=== PATIENT | female | born 1975 | race Caucasian/White ===

== ENCOUNTER 2021-06-16 12:34 | Outpatient (CLI) | payer BC ==
[2021-06-17 15:23] LABS: SARS-CoV-2 PCR by NAA Not Detected (NotDetected)
== END 2021-06-16 12:35 | disposition home or self-care (01) ==
LOC: LABBT 12:34
PROVIDERS: ATTEND Internal Medicine Gastroenterology
DX: Z01.812 Encounter for preprocedural laboratory examination (principal); M62.89 Other specified disorders of muscle; K21.9 Gastro-esophageal reflux disease without esophagitis; R10.13 Epigastric pain; Z20.822 Contact with and (suspected) exposure to COVID-19
CPT/HCPCS: U0003; U0005

== ENCOUNTER 2021-11-20 12:49 | Inpatient (IN) | payer BC, SELFPAY ==
[~2021-11-20 12:49] MED LIST: Iopamidol 370 76% 100 ML VIAL ONE
[2021-11-20] MEDS ORDERED: Morphine 4 MG/ML VIAL ONE (13:16)
[2021-11-20] MEDS ORDERED: Promethazine HCl 25 MG/ML VIAL ONE (13:16)
[2021-11-20 13:53] LABS: #Basophils 0.1 thou/uL (0.0-0.2); #Eosinphils 0.2 thou/uL (0.0-0.7); #Monocytes 0.5 thou/uL (0.11-0.59); #Neutrophils 4.8 thou/uL (1.40-6.50); %Basophils 0.7 % (0.0-1.0); %Eosinophils 2.2 % (0.0-10.0); %Lymphocytes 26.1 % (21.0-51.0); %Monocytes 7.1 % (0.0-10.0); %Neutrophils 63.9 % (42.0-75.0); Hemoglobin 12.7 g/dL (12.0-16.0); Mean Corpuscular HGB CONC 32.7 g/dL (32.0-36.0); Mean Corpuscular Hemoglobin 29.2 pg (27.0-31.0); Mean Corpuscular Volume 89.3 fL (78.0-98.0); Mean Platelet Volume 7.3 fL (7.4-10.4); Platelet Count 307 thou/uL (130-400); RBC Distribution Width 12.6 % (11.5-14.5); Red Blood Cell (RBC) Count 4.36 mill/uL (4.20-5.40); White Blood Cell (WBC) Count 7.5 thou/uL (4.8-10.8)
[2021-11-20 14:02] LABS: BHCG - Serum Negative (NEGATIVE); Pregs Control Background? CLEAR/WHITE (CLR/WHITE); Pregs Control Bar Appear? YES (CONTROL BAR)
[2021-11-20 14:16] LABS: ALT (SGPT) 17 U/L (8-55); AST (SGOT) 17 U/L (5-34); Albumin 4.1 g/dL (3.5-5.0); Alkaline Phosphatase 68 U/L (40-110); Anion Gap 12 mmol/L (10-20); BUN (Urea Nitrogen) 15 mg/dL (7.0-18.7); Bilirubin, Total 0.4 mg/dL (0.2-1.2); Calc. Creatinine Clearance 0 mL/min (70-130); Carbon Dioxide 18 mmol/L (22-29); Chloride 109 mmol/L (98-107); Globulin 3.4 g/dL (2.4-3.5); Glucose 97 mg/dL (70-105); Potassium 4.1 mmol/L (3.5-5.1); Protein, Total 7.5 g/dL (6.0-8.3); Sodium 135 mmol/L (136-145)
[2021-11-20] MEDS ORDERED: Benzocaine 20% Spray 60 ML CAN ONE (15:23)
[2021-11-20] MEDS ORDERED: Lidocaine Viscous Sol 2% 15 ml UD Cup ONE (15:23)
[2021-11-20] MEDS ORDERED: Fentanyl 100 MCG/2 ML VIAL ONE (15:27)
[2021-11-20] MEDS ORDERED: Senokot S 8.6-50 MG TAB PO PRN (15:57)
[2021-11-20] MEDS ORDERED: Guaifenesin DM 100-10/5 ML UDCUP PO PRN (15:57)
[2021-11-20] MEDS ORDERED: Ketorolac Tromethamine 30 MG/ML VIAL IVP PRN (16:01)
[2021-11-20 17:11] VITALS: BMI 35.0
[2021-11-20] MEDS: Sodium Chloride 0.9% 1,000 ML IV SCH ×2 (17:29→20:42)
[2021-11-20] MEDS: Morphine 4 MG/ML VIAL SLOW IVP PRN ×2 (17:31→21:32)
[2021-11-20 18:58] LABS: SARS-CoV-2 NAA Rapid Test Not Detected (NotDetected)
[2021-11-20] MEDS: Famotidine/PF 20 mg/2ml Vial SLOW IVP SCH (20:42)
[2021-11-20] MEDS: Promethazine HCl 12.5 MG in Sodium Chloride 0.9% 50 ML IVPB PRN (21:34)
[2021-11-21] MEDS: Morphine 4 MG/ML VIAL SLOW IVP PRN ×6 (01:33→23:13)
[2021-11-21] MEDS: Sodium Chloride 0.9% 1,000 ML IV SCH ×3 (05:50→17:49)
[2021-11-21] MEDS: Metoclopramide HCl 10 MG/2 ML VIAL IVP PRN ×2 (05:51→17:56)
[2021-11-21 06:37] LABS: #Eosinphils 0.2 thou/uL (0.0-0.7); #Lymphocytes 2.2 thou/uL (1.20-3.40); #Monocytes 0.5 thou/uL (0.11-0.59); #Neutrophils 3.8 thou/uL (1.40-6.50); %Basophils 0.5 % (0.0-1.0); %Eosinophils 2.9 % (0.0-10.0); %Lymphocytes 32.9 % (21.0-51.0); %Monocytes 7.3 % (0.0-10.0); %Neutrophils 56.4 % (42.0-75.0); Hemoglobin 11.4 g/dL (12.0-16.0); Mean Corpuscular HGB CONC 32.1 g/dL (32.0-36.0); Mean Corpuscular Hemoglobin 29.2 pg (27.0-31.0); Mean Corpuscular Volume 91.2 fL (78.0-98.0); Mean Platelet Volume 7.4 fL (7.4-10.4); Platelet Count 272 thou/uL (130-400); RBC Distribution Width 12.6 % (11.5-14.5); White Blood Cell (WBC) Count 6.8 thou/uL (4.8-10.8)
[2021-11-21 06:59] LABS: ALT (SGPT) 15 U/L (8-55); AST (SGOT) 17 U/L (5-34); Albumin 3.4 g/dL (3.5-5.0); Alkaline Phosphatase 59 U/L (40-110); Anion Gap 12 mmol/L (10-20); BUN (Urea Nitrogen) 11 mg/dL (7.0-18.7); Bilirubin, Total 0.3 mg/dL (0.2-1.2); Calc. Creatinine Clearance 135 mL/min (70-130); Calcium 7.9 mg/dL (7.8-10.44); Carbon Dioxide 17 mmol/L (22-29); Chloride 110 mmol/L (98-107); Globulin 2.9 g/dL (2.4-3.5); Glucose 80 mg/dL (70-105); Potassium 3.6 mmol/L (3.5-5.1); Protein, Total 6.3 g/dL (6.0-8.3); Sodium 135 mmol/L (136-145)
[2021-11-21] MEDS ORDERED: MD-Gastroview 120 ML BOT ONE (09:41)
[2021-11-21] MEDS: Enoxaparin Sodium 40 MG/0.4 ML SYRINGE SC SCH (10:09)
[2021-11-21] MEDS: Famotidine/PF 20 mg/2ml Vial SLOW IVP SCH ×2 (10:11→20:23)
[2021-11-21] MEDS: Promethazine HCl 12.5 MG in Sodium Chloride 0.9% 50 ML IVPB PRN (11:11)
[2021-11-21] MEDS ORDERED: Bisacodyl 10 MG SUPP PR PRN (13:28)
[2021-11-21] MEDS ORDERED: Bisacodyl 10 MG SUPP PR SCH (13:30)
[2021-11-22] MEDS: Sodium Chloride 0.9% 1,000 ML IV SCH ×3 (02:48→20:24)
[2021-11-22] MEDS: Morphine 4 MG/ML VIAL SLOW IVP PRN ×6 (04:20→23:27)
[2021-11-22 05:07] LABS: Mean Corpuscular HGB CONC 34.6 g/dL (32.0-36.0); Mean Corpuscular Hemoglobin 30.5 pg (27.0-31.0); Mean Corpuscular Volume 88.2 fL (78.0-98.0); Mean Platelet Volume 7.5 fL (7.4-10.4); Platelet Count 280 thou/uL (130-400); RBC Distribution Width 12.6 % (11.5-14.5); Red Blood Cell (RBC) Count 3.94 mill/uL (4.20-5.40); White Blood Cell (WBC) Count 7.9 thou/uL (4.8-10.8)
[2021-11-22 05:31] LABS: ALT (SGPT) 14 U/L (8-55); AST (SGOT) 21 U/L (5-34); Albumin 3.5 g/dL (3.5-5.0); Alkaline Phosphatase 59 U/L (40-110); Anion Gap 14 mmol/L (10-20); BUN (Urea Nitrogen) 8 mg/dL (7.0-18.7); Bilirubin, Total 0.3 mg/dL (0.2-1.2); Calc. Creatinine Clearance 132 mL/min (70-130); Calcium 8.1 mg/dL (7.8-10.44); Carbon Dioxide 16 mmol/L (22-29); Chloride 108 mmol/L (98-107); Globulin 3.3 g/dL (2.4-3.5); Glucose 62 mg/dL (70-105); Protein, Total 6.8 g/dL (6.0-8.3); Sodium 134 mmol/L (136-145)
[2021-11-22] MEDS: Enoxaparin Sodium 40 MG/0.4 ML SYRINGE SC SCH (07:43)
[2021-11-22] MEDS: Famotidine/PF 20 mg/2ml Vial SLOW IVP SCH ×2 (07:47→19:42)
[2021-11-22] MEDS ORDERED: Polyethylene Glycol 3350 17 GM Packet PO SCH (10:15)
[2021-11-22] MEDS: Polyethylene Glycol 3350 17 GM Packet PO SCH ×2 (15:20→18:06)
[2021-11-22] MEDS: Promethazine HCl 12.5 MG in Sodium Chloride 0.9% 50 ML IVPB PRN (20:24)
[2021-11-23] MEDS: Morphine 4 MG/ML VIAL SLOW IVP PRN ×2 (03:19→07:33)
[2021-11-23] MEDS: Sodium Chloride 0.9% 1,000 ML IV SCH (06:24)
[2021-11-23] MEDS: Famotidine/PF 20 mg/2ml Vial SLOW IVP SCH (07:34)
[2021-11-23] MEDS: Enoxaparin Sodium 40 MG/0.4 ML SYRINGE SC SCH (07:35)
[2021-11-23] MEDS: Polyethylene Glycol 3350 17 GM Packet PO SCH (07:35)
[2021-11-23 07:44] VITALS: BP 109/72; TEMP 98.1
== END 2021-11-23 11:20 | disposition home or self-care (01) | DRG 390 ==
LOC: ERS 12:49 → SURG A 15:32 → OBSVTOIN 11-21 16:45
PROVIDERS: ADMIT Hospitalist; ATTEND Internal Medicine
PROC: 0D9770Z Drainage of Stomach, Pylorus with Drainage Device, Via Natural or Artificial Opening (ICD-10-PCS; principal; 2021-11-21)
DX: K56.7 Ileus, unspecified (principal); Z20.822 Contact with and (suspected) exposure to COVID-19; F32.A Depression, unspecified; K21.9 Gastro-esophageal reflux disease without esophagitis; K22.70 Barrett's esophagus without dysplasia; D25.9 Leiomyoma of uterus, unspecified; Z90.49 Acquired absence of other specified parts of digestive tract; Z88.8 Allergy status to other drugs, medicaments and biological substances
CPT/HCPCS: 36415; 36416; 71045; 74177; 74250; 76856; 80053; 84703; 85025; 85027; 96361; 96374; 96375; J1650; J1885; J2270; J2550; J2765; J3010; J7050; Q9963; Q9967; S0028; U0002

== ENCOUNTER 2022-01-01 16:40 | Inpatient (IN) | payer BC, SELFPAY ==
[~2022-01-01 16:40] MED LIST changes: -Iopamidol 370 76% 100 ML VIAL ONE; +Iopamidol-370 76% 500 ML 1 ML ONE
[2022-01-01 17:43] LABS: ALT (SGPT) 48 U/L (8-55); AST (SGOT) 32 U/L (5-34); Albumin 4.4 g/dL (3.5-5.0); Alkaline Phosphatase 74 U/L (40-110); Anion Gap 17 mmol/L (10-20); BUN (Urea Nitrogen) 11 mg/dL (7.0-18.7); Bilirubin, Total 0.2 mg/dL (0.2-1.2); Calc. Creatinine Clearance 0 mL/min (70-130); Carbon Dioxide 15 mmol/L (22-29); Chloride 110 mmol/L (98-107); Globulin 3.6 g/dL (2.4-3.5); Glucose 100 mg/dL (70-105); Potassium 4.4 mmol/L (3.5-5.1); Sodium 138 mmol/L (136-145)
[2022-01-01 19:03] LABS: #Basophils 0.1 thou/uL (0.0-0.2); #Eosinphils 0.3 thou/uL (0.0-0.7); #Lymphocytes 2.9 thou/uL (1.20-3.40); #Monocytes 0.6 thou/uL (0.11-0.59); #Neutrophils 4.9 thou/uL (1.40-6.50); %Basophils 0.7 % (0.0-1.0); %Eosinophils 3.1 % (0.0-10.0); %Lymphocytes 33.2 % (21.0-51.0); %Monocytes 7.1 % (0.0-10.0); %Neutrophils 55.9 % (42.0-75.0); Hemoglobin 13.3 g/dL (12.0-16.0); Mean Corpuscular HGB CONC 32.6 g/dL (32.0-36.0); Mean Corpuscular Hemoglobin 29.3 pg (27.0-31.0); Mean Corpuscular Volume 89.7 fL (78.0-98.0); Mean Platelet Volume 7.1 fL (7.4-10.4); Platelet Count 370 thou/uL (130-400); RBC Distribution Width 13.4 % (11.5-14.5); Red Blood Cell (RBC) Count 4.53 mill/uL (4.20-5.40); White Blood Cell (WBC) Count 8.8 thou/uL (4.8-10.8)
[2022-01-01 19:05] LABS: Bacteria/HPF 4+ HPF (None Seen); Bilirubin Negative (Negative); Blood, Urine Trace (Negative); Clarity Turbid (Clear); Glucose, Urine (Dipstick) Normal (Negative); Ketone, Urine Negative (Negative); Leukocyte 500 Leu/uL (Negative); Nitrite 1+ (Negative); Protein, Urine (Dipstick) 10 mg/dL (Neg-Trace); Specific Gravity, Urine 1.021 (1.002-1.036); Squamous Epithelial 0-3 HPF (0-3); Urobilinogen Normal mg/dL (Less than 2); WBC/HPF Greater than 50 HPF (0-3); pH, Urine 5.5 (5.0-9.0)
[2022-01-01] MEDS ORDERED: Morphine 4 MG/ML VIAL ONE ×2 (19:28→21:19)
[2022-01-01 19:32] LABS: BHCG - Serum Negative (NEGATIVE); Pregs Control Background? CLEAR/WHITE (CLR/WHITE); Pregs Control Bar Appear? YES (CONTROL BAR)
[2022-01-01] MEDS ORDERED: Promethazine HCl 25 MG/ML VIAL ONE (21:19)
[2022-01-01] MEDS ORDERED: cefTRIAXone\\ROCEPHIN 2 GM VIAL ONE (22:32)
[2022-01-02 00:13] VITALS: BMI 23.1
[2022-01-02] MEDS: Sodium Chloride 0.9% 1,000 ML IV SCH ×2 (00:41→06:21)
[2022-01-02] MEDS: Morphine 4 MG/ML VIAL SLOW IVP PRN ×6 (01:34→23:25)
[2022-01-02] MEDS ORDERED: Ondansetron PF 4 MG/2 ML Vial IVP PRN ×2 (05:14→08:13)
[2022-01-02] MEDS ORDERED: Ondansetron ODT 4 MG TAB PO PRN (05:16)
[2022-01-02] MEDS ORDERED: Promethazine HCl 25 MG/ML VIAL IM SCH (06:00)
[2022-01-02] MEDS ORDERED: Acetaminophen 325 MG TAB PO PRN (08:13)
[2022-01-02] MEDS: Sodium Chloride 0.45% 1,000 ML IV SCH ×2 (08:47→18:53)
[2022-01-02] MEDS: Escitalopram Oxalate 20 mg Tablet PO SCH (08:48)
[2022-01-02] MEDS: Enoxaparin Sodium 40 MG/0.4 ML SYRINGE SC SCH (08:48)
[2022-01-02 09:50] LABS: Anion Gap 10 mmol/L (10-20); BUN (Urea Nitrogen) 8 mg/dL (7.0-18.7); Calc. Creatinine Clearance 99 mL/min (70-130); Calcium 7.6 mg/dL (7.8-10.44); Carbon Dioxide 20 mmol/L (22-29); Chloride 109 mmol/L (98-107); Glucose 82 mg/dL (70-105); Potassium 3.8 mmol/L (3.5-5.1); Sodium 135 mmol/L (136-145)
[2022-01-02] MEDS ORDERED: Morphine 2 MG/ML VIAL SLOW IVP PRN (10:13)
[2022-01-02 12:25] LABS: SARS-CoV-2 PCR by NAA Not Detected (NotDetected)
[2022-01-02] MEDS ORDERED: MD-Gastroview 120 ML BOT ONE (12:52)
[2022-01-03] MEDS: Morphine 4 MG/ML VIAL SLOW IVP PRN ×2 (03:40→08:11)
[2022-01-03] MEDS: Sodium Chloride 0.45% 1,000 ML IV SCH (04:33)
[2022-01-03 05:55] LABS: #Eosinphils 0.3 thou/uL (0.0-0.7); #Monocytes 0.6 thou/uL (0.11-0.59); #Neutrophils 3.2 thou/uL (1.40-6.50); %Basophils 0.5 % (0.0-1.0); %Eosinophils 4.5 % (0.0-10.0); %Lymphocytes 33.3 % (21.0-51.0); %Neutrophils 52.7 % (42.0-75.0); Hemoglobin 11.9 g/dL (12.0-16.0); Mean Corpuscular HGB CONC 32.3 g/dL (32.0-36.0); Mean Corpuscular Hemoglobin 29.5 pg (27.0-31.0); Mean Corpuscular Volume 91.3 fL (78.0-98.0); Mean Platelet Volume 7.1 fL (7.4-10.4); Platelet Count 334 thou/uL (130-400); RBC Distribution Width 13.2 % (11.5-14.5); Red Blood Cell (RBC) Count 4.05 mill/uL (4.20-5.40); White Blood Cell (WBC) Count 6.1 thou/uL (4.8-10.8)
[2022-01-03 06:21] LABS: Anion Gap 14 mmol/L (10-20); BUN (Urea Nitrogen) 5 mg/dL (7.0-18.7); Calc. Creatinine Clearance 100 mL/min (70-130); Calcium 8.8 mg/dL (7.8-10.44); Carbon Dioxide 18 mmol/L (22-29); Chloride 108 mmol/L (98-107); Glucose 84 mg/dL (70-105); Potassium 3.7 mmol/L (3.5-5.1); Sodium 136 mmol/L (136-145)
[2022-01-03 08:04] VITALS: TEMP 98
[2022-01-03] MEDS: Enoxaparin Sodium 40 MG/0.4 ML SYRINGE SC SCH (08:09)
[2022-01-03] MEDS: Escitalopram Oxalate 20 mg Tablet PO SCH (08:09)
[2022-01-03 12:23] VITALS: BP 95/64
== END 2022-01-03 15:42 | disposition home or self-care (01) | DRG 389 ==
LOC: ERS 16:40 → T4-A 22:36 → OBSVTOIN 01-02 16:00
PROVIDERS: ADMIT Student in an Organized Health Care Education/Training Program; ATTEND Internal Medicine
DX: K56.609 Unspecified intestinal obstruction, unspecified as to partial versus complete obstruction (principal); N17.9 Acute kidney failure, unspecified; Z88.8 Allergy status to other drugs, medicaments and biological substances; Z79.899 Other long term (current) drug therapy; Z90.49 Acquired absence of other specified parts of digestive tract; Z98.890 Other specified postprocedural states; Z20.822 Contact with and (suspected) exposure to COVID-19
CPT/HCPCS: 36415; 74177; 74250; 80048; 80053; 81003; 81015; 83690; 84703; 85025; 87077; 87086; 87186; 96365; 96372; 96375; 96376; G0378; J0696; J1650; J2270; J2405; J2550; J7050; Q9963; Q9967; U0003; U0005

== ENCOUNTER 2022-03-03 15:00 | Emergency (ER) | payer BC ==
[~2022-03-03 15:00] MED LIST changes: +GASTROGRAFIN 30 ML BOT ONE
[2022-03-03 16:19] LABS: #Basophils 0.1 thou/uL (0.0-0.2); #Eosinphils 0.2 thou/uL (0.0-0.7); #Monocytes 0.6 thou/uL (0.11-0.59); #Neutrophils 6.2 thou/uL (1.40-6.50); %Basophils 0.5 % (0.0-1.0); %Eosinophils 2.3 % (0.0-10.0); %Lymphocytes 30.1 % (21.0-51.0); %Monocytes 6.3 % (0.0-10.0); %Neutrophils 60.9 % (42.0-75.0); Hemoglobin 13.2 g/dL (12.0-16.0); Mean Corpuscular HGB CONC 33.3 g/dL (32.0-36.0); Mean Corpuscular Hemoglobin 29.2 pg (27.0-31.0); Mean Corpuscular Volume 87.7 fL (78.0-98.0); Mean Platelet Volume 6.9 fL (7.4-10.4); Platelet Count 375 thou/uL (130-400); RBC Distribution Width 13.1 % (11.5-14.5); Red Blood Cell (RBC) Count 4.53 mill/uL (4.20-5.40); White Blood Cell (WBC) Count 10.1 thou/uL (4.8-10.8)
[2022-03-03] MEDS ORDERED: HYDROmorphone 0.5 MG/0.5 ML SYRINGE ONE ×2 (16:20→18:30)
[2022-03-03 16:47] LABS: ALT (SGPT) 26 U/L (8-55); AST (SGOT) 21 U/L (5-34); Albumin 4.4 g/dL (3.5-5.0); Alkaline Phosphatase 74 U/L (40-110); Anion Gap 14 mmol/L (10-20); BUN (Urea Nitrogen) 14 mg/dL (7.0-18.7); Bilirubin, Total 0.2 mg/dL (0.2-1.2); Calc. Creatinine Clearance 0 mL/min (70-130); Calcium 9.3 mg/dL (7.8-10.44); Carbon Dioxide 22 mmol/L (22-29); Chloride 106 mmol/L (98-107); Globulin 3.8 g/dL (2.4-3.5); Glucose 90 mg/dL (70-105); Lipase 34 U/L (8-78); Potassium 3.9 mmol/L (3.5-5.1); Protein, Total 8.2 g/dL (6.0-8.3); Sodium 138 mmol/L (136-145)
[2022-03-03] MEDS ORDERED: Promethazine HCl 12.5 MG in Sodium Chloride 0.9% 50 ML IVPB SCH (17:00)
[2022-03-03 17:45] LABS: BHCG - Serum Negative (NEGATIVE); Pregs Control Background? CLEAR/WHITE (CLR/WHITE); Pregs Control Bar Appear? YES (CONTROL BAR)
== END 2022-03-03 19:55 | disposition home or self-care (01) ==
LOC: ERS 15:00
DX: K59.00 Constipation, unspecified (principal); K94.09 Other complications of colostomy
CPT/HCPCS: 71045; 74177; 80053; 83605; 83690; 84484; 84703; 85025; 87040; 93005; 96365; 96375; 96376; J1170; J2550; Q9963; Q9967

== ENCOUNTER 2022-04-15 15:46 | Inpatient (IN) | payer BC, SELFPAY ==
[~2022-04-15 15:46] MED LIST changes: -GASTROGRAFIN 30 ML BOT ONE
[2022-04-15] MEDS ORDERED: Morphine 4 MG/ML VIAL SLOW IVP SCH (16:30)
[2022-04-15] MEDS ORDERED: Promethazine HCl 12.5 MG in Sodium Chloride 0.9% 1,000 ML IVPB SCH (16:30)
[2022-04-15] MEDS ORDERED: Morphine 4 MG/ML VIAL ONE ×2 (16:38→17:50)
[2022-04-15 16:40] LABS: #Eosinphils 0.1 thou/uL (0.0-0.7); #Lymphocytes 2.4 thou/uL (1.20-3.40); #Monocytes 0.3 thou/uL (0.11-0.59); #Neutrophils 4.6 thou/uL (1.40-6.50); %Basophils 0.5 % (0.0-1.0); %Eosinophils 1.9 % (0.0-10.0); %Lymphocytes 32.2 % (21.0-51.0); %Monocytes 4.4 % (0.0-10.0); Hemoglobin 13.5 g/dL (12.0-16.0); Mean Corpuscular HGB CONC 33.1 g/dL (32.0-36.0); Mean Corpuscular Hemoglobin 29.3 pg (27.0-31.0); Mean Corpuscular Volume 88.5 fL (78.0-98.0); Mean Platelet Volume 7.8 fL (7.4-10.4); Platelet Count 257 thou/uL (130-400); RBC Distribution Width 12.9 % (11.5-14.5); White Blood Cell (WBC) Count 7.5 thou/uL (4.8-10.8)
[2022-04-15 17:12] LABS: ALT (SGPT) 47 U/L (8-55); AST (SGOT) 30 U/L (5-34); Albumin 4.5 g/dL (3.5-5.0); Alkaline Phosphatase 74 U/L (40-110); BUN (Urea Nitrogen) 12 mg/dL (7.0-18.7); Bilirubin, Total 0.3 mg/dL (0.2-1.2); Calc. Creatinine Clearance 0 mL/min (70-130); Calcium 9.7 mg/dL (7.8-10.44); Carbon Dioxide 21 mmol/L (22-29); Estimated GFR 68; Globulin 3.7 g/dL (2.4-3.5); Glucose 160 mg/dL (70-105); Lipase 37 U/L (8-78); Protein, Total 8.2 g/dL (6.0-8.3)
[2022-04-15 17:15] LABS: Chloride 103 mmol/L (98-107); Potassium 3.7 mmol/L (3.5-5.1); Sodium 138 mmol/L (136-145)
[2022-04-15 17:34] LABS: Anion Gap 18 mmol/L (10-20)
[2022-04-15] MEDS ORDERED: Piperacillin/Tazobactam 3.375 GM VIAL ONE (18:29)
[2022-04-15 18:51] LABS: Bacteria/HPF 3+ HPF (None Seen); Bilirubin Negative (Negative); Blood, Urine Negative (Negative); Clarity Clear (Clear); Glucose, Urine (Dipstick) Normal (Negative); Ketone, Urine Negative (Negative); Leukocyte 25 Leu/uL (Negative); Nitrite Negative (Negative); Protein, Urine (Dipstick) Negative (Neg-Trace); RBC/HPF 0-3 HPF (0-3); Specific Gravity, Urine 1.005 (1.002-1.036); Squamous Epithelial 0-3 HPF (0-3); Urobilinogen Normal mg/dL (Less than 2)
[2022-04-15] MEDS ORDERED: Ketorolac Tromethamine 30 MG/ML VIAL ONE (19:41)
[2022-04-15] MEDS ORDERED: HYDROmorphone 0.5 MG/0.5 ML SYRINGE ONE (19:41)
[2022-04-15 19:54] LABS: Lactic Acid 0.7 mmol/L (0.5-2.2)
[2022-04-15] MEDS ORDERED: Fentanyl 100 MCG/2 ML VIAL ONE (22:53)
[2022-04-15] MEDS ORDERED: Fentanyl 100 MCG/2 ML VIAL SLOW IVP SCH (23:00)
[2022-04-15] MEDS ORDERED: Morphine 4 MG/ML VIAL SLOW IVP PRN (23:25)
[2022-04-15] MEDS ORDERED: Ondansetron ODT 4 MG TAB SL PRN (23:30)
[2022-04-15] MEDS ORDERED: Ondansetron PF 4 MG/2 ML Vial IVP PRN (23:30)
[2022-04-15] MEDS ORDERED: Acetaminophen 325 MG TAB PO PRN (23:30)
[2022-04-15] MEDS: Sodium Chloride 0.9% 1,000 ML IV SCH (23:53)
[2022-04-16 00:01] VITALS: BMI 36.6
[2022-04-16] MEDS: Promethazine HCl 12.5 MG in Sodium Chloride 0.9% 50 ML IVPB PRN ×3 (01:04→18:05)
[2022-04-16] MEDS: cefTRIAXone\\ROCEPHIN 1 GM in Sodium Chloride 0.9% 100 ML IVPB SCH (03:59)
[2022-04-16] MEDS: Morphine 2 MG/ML VIAL SLOW IVP PRN ×5 (05:15→21:06)
[2022-04-16] MEDS: Sodium Chloride 0.9% 1,000 ML IV SCH (05:15)
[2022-04-16 06:57] LABS: #Eosinphils 0.2 thou/uL (0.0-0.7); #Lymphocytes 2.7 thou/uL (1.20-3.40); #Monocytes 0.5 thou/uL (0.11-0.59); #Neutrophils 2.8 thou/uL (1.40-6.50); %Basophils 0.6 % (0.0-1.0); %Lymphocytes 43.1 % (21.0-51.0); %Monocytes 8.2 % (0.0-10.0); %Neutrophils 45.1 % (42.0-75.0); Hemoglobin 11.2 g/dL (12.0-16.0); Mean Corpuscular HGB CONC 32.4 g/dL (32.0-36.0); Mean Corpuscular Hemoglobin 29.2 pg (27.0-31.0); Mean Corpuscular Volume 89.9 fL (78.0-98.0); Mean Platelet Volume 7.5 fL (7.4-10.4); Platelet Count 207 thou/uL (130-400); RBC Distribution Width 12.9 % (11.5-14.5); Red Blood Cell (RBC) Count 3.85 mill/uL (4.20-5.40); White Blood Cell (WBC) Count 6.2 thou/uL (4.8-10.8)
[2022-04-16 07:16] LABS: Anion Gap 15 mmol/L (10-20); BUN (Urea Nitrogen) 8 mg/dL (7.0-18.7); Calc. Creatinine Clearance 139 mL/min (70-130); Calcium 7.6 mg/dL (7.8-10.44); Carbon Dioxide 16 mmol/L (22-29); Chloride 112 mmol/L (98-107); Estimated GFR 96; Glucose 85 mg/dL (70-105); Potassium 3.9 mmol/L (3.5-5.1); Sodium 139 mmol/L (136-145)
[2022-04-16] MEDS ORDERED: Enoxaparin Sodium 40 MG/0.4 ML SYRINGE SC SCH (09:00)
[2022-04-16] MEDS ORDERED: Polyethylene Glycol 3350 17 GM Packet PO SCH (09:00)
[2022-04-16] MEDS ORDERED: Senokot S 8.6-50 MG TAB PO SCH (09:00)
[2022-04-16] MEDS: Pantoprazole 40 MG VIAL IVP SCH (12:39)
[2022-04-16] MEDS: 1/2 NS w/KCL 20 mEq 1,000 ML IV SCH (13:09)
[2022-04-17] MEDS: Morphine 2 MG/ML VIAL SLOW IVP PRN ×5 (01:09→21:15)
[2022-04-17] MEDS: 1/2 NS w/KCL 20 mEq 1,000 ML IV SCH ×2 (01:10→13:19)
[2022-04-17] MEDS: cefTRIAXone\\ROCEPHIN 1 GM in Sodium Chloride 0.9% 100 ML IVPB SCH (03:55)
[2022-04-17 06:22] LABS: #Eosinphils 0.2 thou/uL (0.0-0.7); #Lymphocytes 2.1 thou/uL (1.20-3.40); #Monocytes 0.5 thou/uL (0.11-0.59); #Neutrophils 2.9 thou/uL (1.40-6.50); %Basophils 0.6 % (0.0-1.0); %Eosinophils 4.3 % (0.0-10.0); %Lymphocytes 35.9 % (21.0-51.0); %Monocytes 9.1 % (0.0-10.0); %Neutrophils 50.1 % (42.0-75.0); Hemoglobin 11.8 g/dL (12.0-16.0); Mean Corpuscular HGB CONC 33.4 g/dL (32.0-36.0); Mean Corpuscular Hemoglobin 29.7 pg (27.0-31.0); Mean Corpuscular Volume 88.7 fL (78.0-98.0); Mean Platelet Volume 7.3 fL (7.4-10.4); Platelet Count 235 thou/uL (130-400); RBC Distribution Width 12.7 % (11.5-14.5); Red Blood Cell (RBC) Count 3.98 mill/uL (4.20-5.40); White Blood Cell (WBC) Count 5.7 thou/uL (4.8-10.8)
[2022-04-17 06:29] LABS: Phosphorus 3.6 mg/dL (2.3-4.7)
[2022-04-17 06:36] LABS: Anion Gap 15 mmol/L (10-20); BUN (Urea Nitrogen) 5 mg/dL (7.0-18.7); Calc. Creatinine Clearance 129 mL/min (70-130); Calcium 8.9 mg/dL (7.8-10.44); Carbon Dioxide 19 mmol/L (22-29); Chloride 108 mmol/L (98-107); Estimated GFR 88; Glucose 89 mg/dL (70-105); Magnesium 1.8 mg/dL (1.6-2.6); Sodium 138 mmol/L (136-145)
[2022-04-17] MEDS ORDERED: Electrolyte Replacement Protocol 1 EACH FS SCH (08:45)
[2022-04-17] MEDS ORDERED: PROPOFOL 200 MG/20 ML VIAL ONE (08:52)
[2022-04-17] MEDS ORDERED: Lidocaine 1% PF 5 ML VIAL ONE (08:52)
[2022-04-17] MEDS ORDERED: Magnesium 2 GM/50 ML(in water) 2 GM in Premix Bag 1 BAG IVPB SCH (09:00)
[2022-04-17] MEDS: Pantoprazole 40 MG VIAL IVP SCH (12:07)
[2022-04-17] MEDS ORDERED: Morphine 2 MG/ML VIAL SLOW IVP SCH (13:00)
[2022-04-17] MEDS: Promethazine HCl 12.5 MG in Sodium Chloride 0.9% 50 ML IVPB PRN ×2 (14:09→20:20)
[2022-04-18] MEDS: Morphine 2 MG/ML VIAL SLOW IVP PRN ×6 (01:11→20:43)
[2022-04-18] MEDS: 1/2 NS w/KCL 20 mEq 1,000 ML IV SCH ×3 (01:12→14:32)
[2022-04-18] MEDS: cefTRIAXone\\ROCEPHIN 1 GM in Sodium Chloride 0.9% 100 ML IVPB SCH (03:30)
[2022-04-18] MEDS: Promethazine HCl 12.5 MG in Sodium Chloride 0.9% 50 ML IVPB PRN ×2 (05:48→16:40)
[2022-04-18 06:55] LABS: Anion Gap 16 mmol/L (10-20); BUN (Urea Nitrogen) Less than 4 mg/dL (7.0-18.7); Calc. Creatinine Clearance 129 mL/min (70-130); Calcium 8.9 mg/dL (7.8-10.44); Carbon Dioxide 19 mmol/L (22-29); Chloride 108 mmol/L (98-107); Estimated GFR 88; Glucose 100 mg/dL (70-105); Potassium 4.2 mmol/L (3.5-5.1); Sodium 139 mmol/L (136-145)
[2022-04-18] MEDS: Pantoprazole 40 MG VIAL IVP SCH (11:38)
[2022-04-19] MEDS: Promethazine HCl 12.5 MG in Sodium Chloride 0.9% 50 ML IVPB PRN ×3 (00:31→19:16)
[2022-04-19] MEDS: Morphine 2 MG/ML VIAL SLOW IVP PRN ×7 (00:31→22:33)
[2022-04-19] MEDS ORDERED: Famotidine 20 MG TAB PO SCH ×2 (02:30→20:45)
[2022-04-19] MEDS: cefTRIAXone\\ROCEPHIN 1 GM in Sodium Chloride 0.9% 100 ML IVPB SCH (03:35)
[2022-04-19] MEDS: 1/2 NS w/KCL 20 mEq 1,000 ML IV SCH ×4 (04:51→17:11)
[2022-04-19] MEDS: Pantoprazole 40 MG VIAL IVP SCH (12:12)
[2022-04-20] MEDS: Morphine 2 MG/ML VIAL SLOW IVP PRN ×5 (03:20→20:51)
[2022-04-20] MEDS: cefTRIAXone\\ROCEPHIN 1 GM in Sodium Chloride 0.9% 100 ML IVPB SCH (03:21)
[2022-04-20] MEDS: Promethazine HCl 12.5 MG in Sodium Chloride 0.9% 50 ML IVPB PRN ×3 (03:21→20:59)
[2022-04-20 07:09] LABS: #Basophils 0.1 thou/uL (0.0-0.2); #Eosinphils 0.5 thou/uL (0.0-0.7); #Lymphocytes 2.6 thou/uL (1.20-3.40); #Monocytes 0.6 thou/uL (0.11-0.59); #Neutrophils 2.9 thou/uL (1.40-6.50); %Basophils 0.9 % (0.0-1.0); %Eosinophils 6.9 % (0.0-10.0); %Lymphocytes 38.7 % (21.0-51.0); %Monocytes 9.7 % (0.0-10.0); %Neutrophils 43.7 % (42.0-75.0); Hemoglobin 12.7 g/dL (12.0-16.0); Mean Corpuscular Volume 90.6 fL (78.0-98.0); Mean Platelet Volume 8.3 fL (7.4-10.4); Platelet Count 241 thou/uL (130-400); Red Blood Cell (RBC) Count 4.39 mill/uL (4.20-5.40); White Blood Cell (WBC) Count 6.6 thou/uL (4.8-10.8)
[2022-04-20 07:38] LABS: Anion Gap 17 mmol/L (10-20); BUN (Urea Nitrogen) 4 mg/dL (7.0-18.7); Calc. Creatinine Clearance 119 mL/min (70-130); Calcium 9.1 mg/dL (7.8-10.44); Carbon Dioxide 21 mmol/L (22-29); Chloride 104 mmol/L (98-107); Estimated GFR 80; Glucose 87 mg/dL (70-105); Magnesium 1.8 mg/dL (1.6-2.6); Phosphorus 4.5 mg/dL (2.3-4.7); Potassium 4.1 mmol/L (3.5-5.1); Sodium 138 mmol/L (136-145)
[2022-04-20] MEDS ORDERED: Magnesium 2 GM/50 ML(in water) 2 GM in Premix Bag 1 BAG IVPB SCH (09:00)
[2022-04-20] MEDS: 1/2 NS w/KCL 20 mEq 1,000 ML IV SCH (10:24)
[2022-04-20] MEDS: Pantoprazole 40 MG VIAL IVP SCH (11:19)
[2022-04-21] MEDS: Morphine 2 MG/ML VIAL SLOW IVP PRN ×3 (00:26→08:14)
[2022-04-21] MEDS: cefTRIAXone\\ROCEPHIN 1 GM in Sodium Chloride 0.9% 100 ML IVPB SCH (03:41)
[2022-04-21 08:22] VITALS: BP 92/60; TEMP 97.6
[2022-04-21] MEDS: Pantoprazole 40 MG VIAL IVP SCH (13:07)
== END 2022-04-21 13:01 | disposition home or self-care (01) | DRG 394 ==
LOC: ERS 15:46 → ERHOLD 20:12 → T4-B 23:26 → OBSVTOIN 04-16 11:48
PROVIDERS: ADMIT Internal Medicine; ATTEND Internal Medicine
PROC: 0DJ08ZZ Inspection of Upper Intestinal Tract, Via Natural or Artificial Opening Endoscopic (ICD-10-PCS; principal; 2022-04-17)
DX: K43.3 Parastomal hernia with obstruction, without gangrene (principal); N39.0 Urinary tract infection, site not specified; E87.2 Acidosis; Z20.822 Contact with and (suspected) exposure to COVID-19; K22.70 Barrett's esophagus without dysplasia; F17.290 Nicotine dependence, other tobacco product, uncomplicated; F32.A Depression, unspecified; E66.9 Obesity, unspecified; E83.42 Hypomagnesemia; Z79.899 Other long term (current) drug therapy; Z68.36 Body mass index [BMI] 36.0-36.9, adult; Z93.2 Ileostomy status; Z90.49 Acquired absence of other specified parts of digestive tract; Z98.890 Other specified postprocedural states; Z28.311 Partially vaccinated for COVID-19; Z88.8 Allergy status to other drugs, medicaments and biological substances; B96.89 Other specified bacterial agents as the cause of diseases classified elsewhere
CPT/HCPCS: 36415; 74022; 74177; 80048; 80053; 81003; 81015; 83605; 83690; 83735; 84100; 85025; 87077; 87086; 87186; 96361; 96365; 96372; 96375; 96376; C9113; G0378; J0696; J1170; J1650; J1885; J2270; J2543; J2550; J2704; J3010; J3475; J3480; J3490; J7050; Q9967; U0003; U0005

== ENCOUNTER 2022-05-14 14:52 | Inpatient (IN) | payer BC, SELFPAY ==
[2022-05-14 16:10] LABS: Mean Corpuscular HGB CONC 31.9 g/dL (32.0-36.0); Mean Corpuscular Hemoglobin 28.1 pg (27.0-31.0); Mean Corpuscular Volume 88.2 fL (78.0-98.0); Mean Platelet Volume 8.8 fL (7.4-10.4); Platelet Count 265 thou/uL (130-400); RBC Distribution Width 13.3 % (11.5-14.5); Red Blood Cell (RBC) Count 4.27 mill/uL (4.20-5.40); White Blood Cell (WBC) Count 10.8 thou/uL (4.8-10.8)
[2022-05-14 16:24] LABS: Band 26 % (5-11); Eosinophils 14 % (0-10); Lymphocytes 2 % (21-51); MDiff Complete? YES; Monocytes 3 % (0-10); Neutrophil 53 % (42-75); Ovalocytes SLIGHT = 2-5 cells (100X) (0-1/hpf); Platelet Morphology Comment Appears Adequate; Polychromasia SLIGHT = 2-3 cells (100X) (0-2/hpf); Reactive Lymphocytes 1 % (0-10)
[2022-05-14] MEDS ORDERED: Promethazine HCl 12.5 MG in Sodium Chloride 0.9% 50 ML IVPB SCH (16:30)
[2022-05-14 16:32] LABS: ALT (SGPT) 53 U/L (8-55); AST (SGOT) 38 U/L (5-34); Albumin 3.7 g/dL (3.5-5.0); Alkaline Phosphatase 240 U/L (40-110); Anion Gap 28 mmol/L (10-20); BUN (Urea Nitrogen) 68 mg/dL (7.0-18.7); Bilirubin, Total 2.5 mg/dL (0.2-1.2); Calc. Creatinine Clearance 0 mL/min (70-130); Calcium 8.1 mg/dL (7.8-10.44); Carbon Dioxide 11 mmol/L (22-29); Chloride 95 mmol/L (98-107); Estimated GFR 6; Globulin 3.6 g/dL (2.4-3.5); Glucose 99 mg/dL (70-105); Lipase 11 U/L (8-78); Potassium 4.6 mmol/L (3.5-5.1); Protein, Total 7.3 g/dL (6.0-8.3); Sodium 129 mmol/L (136-145)
[2022-05-14] MEDS ORDERED: Sodium Bicarb 50 MEQ/50 ML Abboject 8.4% SYRINGE ONE (17:06)
[2022-05-14] MEDS ORDERED: Ketamine 50 MG/ML (10ML VIAL) ONE (17:36)
[2022-05-14] MEDS ORDERED: Vancomycin 1 GM/200 ML BAG ONE (18:17)
[2022-05-14] MEDS ORDERED: Cefepime 2 GM VIAL ONE (18:17)
[2022-05-14] MEDS ORDERED: Norepinephrine 4 MG/4 ML VIAL ONE ×2 (18:24→18:28)
[2022-05-14] MEDS ORDERED: Midazolam HCl 2 mg/2 ml Vial ONE (18:46)
[2022-05-14] MEDS ORDERED: Acetaminophen 325 MG Suppository PR PRN (18:55)
[2022-05-14] MEDS ORDERED: Morphine 2 MG/ML VIAL SLOW IVP PRN (19:04)
[2022-05-14] MEDS ORDERED: HYDROmorphone 0.5 MG/0.5 ML SYRINGE SLOW IVP PRN (19:05)
[2022-05-14] MEDS ORDERED: Aspirin 325 MG TAB ONE (19:28)
[2022-05-14 19:49] LABS: Bacteria/HPF None Seen HPF (None Seen); Bilirubin Negative (Negative); Blood, Urine 2+ (Negative); Clarity Turbid (Clear); Glucose, Urine (Dipstick) Normal (Negative); Ketone, Urine Negative (Negative); Leukocyte 250 Leu/uL (Negative); Nitrite Negative (Negative); Protein, Urine (Dipstick) 70 mg/dL (Neg-Trace); Specific Gravity, Urine 1.023 (1.002-1.036); Squamous Epithelial 0-3 HPF (0-3); Urobilinogen Normal mg/dL (Less than 2); pH, Urine 5.5 (5.0-9.0)
[2022-05-14 19:53] LABS: Lactic Acid 4.3 mmol/L (0.5-2.2)
[2022-05-14 19:55] LABS: Troponin I 0.098 ng/mL (< 0.028)
[2022-05-14] MEDS ORDERED: Dexamethasone 10 MG/ML VIAL ONE (20:28)
[2022-05-14] MEDS ORDERED: metroNIDAZOLE 500 MG/100 ML BAG ONE (20:47)
[2022-05-14] MEDS ORDERED: Acetaminophen 500 MG TAB ONE (20:47)
[2022-05-14] MEDS ORDERED: Morphine 4 MG/ML VIAL ONE (20:47)
[2022-05-14] MEDS ORDERED: ALPRAZolam 0.5 MG TAB PO SCH (21:00)
[2022-05-14] MEDS ORDERED: ALPRAZolam 0.25 MG TAB ONE (21:17)
[2022-05-14] MEDS: Lactated Ringer's 1,000 ML IV SCH (21:47)
[2022-05-14] MEDS ORDERED: Vancomycin HCl 750 MG in Sodium Chloride 0.9% 250 ML 250 ML IVPB SCH (22:00)
[2022-05-14] MEDS: Atorvastatin Calcium 40 MG TAB PO SCH (22:03)
[2022-05-14 22:34] LABS: SARS-CoV-2 NAA Rapid Test Not Detected (NotDetected)
[2022-05-14 22:49] LABS: Troponin I 0.396 ng/mL (< 0.028)
[2022-05-15 01:55] LABS: Troponin I 0.482 ng/mL (< 0.028)
[2022-05-15] MEDS: NOREPINEPHRINE 8 MG/250 ML-D5W 250 ML IVPB PRN ×4 (02:58→21:30)
[2022-05-15] MEDS: Lactated Ringer's 1,000 ML IV SCH (02:58)
[2022-05-15] MEDS: Morphine 2 MG/ML VIAL SLOW IVP PRN ×3 (03:40→11:48)
[2022-05-15 04:15] LABS: Hemoglobin 9.7 g/dL (12.0-16.0); Mean Corpuscular HGB CONC 32.2 g/dL (32.0-36.0); Mean Corpuscular Hemoglobin 28.4 pg (27.0-31.0); Mean Corpuscular Volume 88.1 fL (78.0-98.0); Mean Platelet Volume 8.8 fL (7.4-10.4); Platelet Count 172 thou/uL (130-400); RBC Distribution Width 13.3 % (11.5-14.5); Red Blood Cell (RBC) Count 3.43 mill/uL (4.20-5.40)
[2022-05-15 04:18] LABS: Lactic Acid 2.3 mmol/L (0.5-2.2)
[2022-05-15 04:28] LABS: ALT (SGPT) 36 U/L (8-55); AST (SGOT) 37 U/L (5-34); Albumin 2.5 g/dL (3.5-5.0); Alkaline Phosphatase 175 U/L (40-110); Anion Gap 17 mmol/L (10-20); BUN (Urea Nitrogen) 54 mg/dL (7.0-18.7); Bilirubin, Total 2.5 mg/dL (0.2-1.2); Calc. Creatinine Clearance 28 mL/min (70-130); Calcium 5.7 mg/dL (7.8-10.44); Carbon Dioxide 11 mmol/L (22-29); Chloride 110 mmol/L (98-107); Estimated GFR 16; Globulin 2.4 g/dL (2.4-3.5); Glucose 99 mg/dL (70-105); Potassium 3.6 mmol/L (3.5-5.1); Protein, Total 4.9 g/dL (6.0-8.3); Sodium 134 mmol/L (136-145)
[2022-05-15] MEDS ORDERED: Calcium Gluc 4.6 MEQ/10 ML (100 MG/ML) SLOW IVP SCH (04:45)
[2022-05-15] MEDS ORDERED: Sodium Bicarb 50 MEQ/50 ML Abboject 8.4% SYRINGE IVP SCH (04:45)
[2022-05-15] MEDS: Acetaminophen 650 MG Suppository PR PRN (05:03)
[2022-05-15] MEDS: Promethazine HCl 12.5 MG, Admixture Fee 1 EACH in Sodium Chloride 0.9% 50 ML IVPB PRN ×2 (05:03→21:23)
[2022-05-15] MEDS: metroNIDAZOLE 500 MG in Premix Bag 1 BAG IVPB SCH ×3 (05:04→21:24)
[2022-05-15 07:09] LABS: Critical Call Chem Troponin I RESULT DECREASING; Troponin I 0.432 ng/mL (< 0.028)
[2022-05-15 07:57] LABS: Band 40 % (5-11); Eosinophils 5 % (0-10); Lymphocytes 3 % (21-51); MDiff Complete? YES; Monocytes 1 % (0-10); Neutrophil 51 % (42-75); Platelet Morphology Comment Appears Adequate; Polychromasia SLIGHT = 2-3 cells (100X) (0-2/hpf); Vacuoles SLIGHT
[2022-05-15 08:33] LABS: Magnesium 0.9 mg/dL (1.6-2.6)
[2022-05-15] MEDS: Aspirin 81 mg Enteric Coated Tablet PO SCH (09:00)
[2022-05-15] MEDS: Loratadine 10 MG TAB PO SCH (09:00)
[2022-05-15] MEDS: Citalopram 20 MG TAB PO SCH (09:00)
[2022-05-15] MEDS: Heparin 5,000 UNITS/ML VIAL SC SCH ×2 (09:00→21:24)
[2022-05-15] MEDS: Sodium Bicarbonate 150 MEQ in Dextrose 5% in Water 850 ML IV SCH ×2 (09:10→18:34)
[2022-05-15] MEDS: Magnesium Sulfate In Water 4 GM in Premix Bag 1 BAG IVPB SCH ×2 (09:12→11:31)
[2022-05-15 17:04] LABS: Magnesium 3.4 mg/dL (1.6-2.6)
[2022-05-15 17:56] LABS: Anion Gap 18 mmol/L (10-20); BUN (Urea Nitrogen) 50 mg/dL (7.0-18.7); Calc. Creatinine Clearance 45 mL/min (70-130); Carbon Dioxide 15 mmol/L (22-29); Chloride 104 mmol/L (98-107); Estimated GFR 24; Glucose 155 mg/dL (70-105); Potassium 3.6 mmol/L (3.5-5.1); Sodium 133 mmol/L (136-145)
[2022-05-15] MEDS: Fentanyl 100 MCG/2 ML VIAL SLOW IVP PRN ×2 (17:56→23:39)
[2022-05-15] MEDS ORDERED: Cefepime 0.5 GM, Admixture Fee 1 EACH in Sodium Chloride 0.9% 100 ML IVPB SCH (18:00)
[2022-05-15 18:03] LABS: Calcium 5.9 mg/dL (7.8-10.44)
[2022-05-15] MEDS ORDERED: Calcium Gluconate 4.6 MEQ in Sodium Chloride 0.9% 100 ML IVPB SCH (19:53)
[2022-05-15] MEDS ORDERED: CALCIUM GLUC 1GM/NS 50ML 4.6 GM in Premix Bag 1 BAG IVPB SCH (20:15)
[2022-05-15] MEDS ORDERED: CALCIUM GLUC 1GM/NS 50ML 1 GM in Premix Bag 1 BAG IVPB SCH (20:45)
[2022-05-15 20:51] LABS: Vancomycin, Random 11.8 ug/mL (See Comment)
[2022-05-15] MEDS ORDERED: ADMIXTURE FEE IVPB SCH (21:00)
[2022-05-15] MEDS ORDERED: VANCOMYCIN IVPB SCH (21:00)
[2022-05-15] MEDS: Atorvastatin Calcium 40 MG TAB PO SCH (21:24)
[2022-05-15] MEDS ORDERED: Vancomycin 1 GM in Premix Bag 1 BAG IVPB SCH (22:00)
[2022-05-16] MEDS: Fentanyl 100 MCG/2 ML VIAL SLOW IVP PRN ×5 (03:30→23:56)
[2022-05-16] MEDS: Promethazine HCl 12.5 MG, Admixture Fee 1 EACH in Sodium Chloride 0.9% 50 ML IVPB PRN ×4 (03:31→22:51)
[2022-05-16] MEDS: NOREPINEPHRINE 8 MG/250 ML-D5W 250 ML IVPB PRN ×4 (03:32→21:31)
[2022-05-16 04:58] LABS: ALT (SGPT) 35 U/L (8-55); AST (SGOT) 42 U/L (5-34); Albumin 2.4 g/dL (3.5-5.0); Alkaline Phosphatase 207 U/L (40-110); Anion Gap 16 mmol/L (10-20); BUN (Urea Nitrogen) 40 mg/dL (7.0-18.7); Calc. Creatinine Clearance 62 mL/min (70-130); Calcium 6.3 mg/dL (7.8-10.44); Carbon Dioxide 20 mmol/L (22-29); Chloride 99 mmol/L (98-107); Estimated GFR 35; Globulin 2.4 g/dL (2.4-3.5); Glucose 196 mg/dL (70-105); Magnesium 3.1 mg/dL (1.6-2.6); Protein, Total 4.8 g/dL (6.0-8.3); Sodium 132 mmol/L (136-145)
[2022-05-16 05:18] LABS: Band 17 % (5-11); Eosinophils 11 % (0-10); Hemoglobin 9.3 g/dL (12.0-16.0); Lymphocytes 2 % (21-51); MDiff Complete? YES; Mean Corpuscular Hemoglobin 29.6 pg (27.0-31.0); Mean Corpuscular Volume 87.1 fL (78.0-98.0); Mean Platelet Volume 9.4 fL (7.4-10.4); Monocytes 2 % (0-10); Neutrophil 67 % (42-75); Platelet Count 112 thou/uL (130-400); Platelet Morphology Comment Appears Decreased; RBC Distribution Width 13.5 % (11.5-14.5); Reactive Lymphocytes 1 % (0-10); Red Blood Cell (RBC) Count 3.15 mill/uL (4.20-5.40); White Blood Cell (WBC) Count 11.6 thou/uL (4.8-10.8)
[2022-05-16] MEDS: metroNIDAZOLE 500 MG in Premix Bag 1 BAG IVPB SCH ×3 (05:55→22:52)
[2022-05-16] MEDS: Pantoprazole 40 MG VIAL IVP SCH (09:28)
[2022-05-16] MEDS: Cefepime 1 GM in Sodium Chloride 0.9% 100 ML IVPB SCH ×2 (09:29→21:29)
[2022-05-16] MEDS: Heparin 5,000 UNITS/ML VIAL SC SCH ×2 (09:34→21:30)
[2022-05-16] MEDS: Citalopram 20 MG TAB PO SCH (09:36)
[2022-05-16] MEDS: Aspirin 81 mg Enteric Coated Tablet PO SCH (09:36)
[2022-05-16] MEDS: Loratadine 10 MG TAB PO SCH (09:36)
[2022-05-16] MEDS ORDERED: Sodium Bicarbonate 150 MEQ in Dextrose 5% in Water 1,000 ML IV SCH (10:00)
[2022-05-16] MEDS ORDERED: Midazolam HCl 2 mg/2 ml Vial SLOW IVP PRN (10:35)
[2022-05-16] MEDS: Potassium Chloride 20 MEQ in Premix Bag 1 BAG IVPB SCH ×4 (10:52→16:04)
[2022-05-16 11:00] LABS: Vancomycin, Random 12.5 ug/mL (See Comment)
[2022-05-16] MEDS ORDERED: Vancomycin 1 GM in Premix Bag 1 BAG IVPB SCH (12:00)
[2022-05-16] MEDS: Vancomycin 1.5 GRAM/300 ML BAG 1.5 GM in Premix Bag 1 BAG IVPB SCH (12:47)
[2022-05-16] MEDS ORDERED: HYDROmorphone 0.5 MG/0.5 ML SYRINGE SLOW IVP SCH (16:15)
[2022-05-16] MEDS: Atorvastatin Calcium 40 MG TAB PO SCH (21:28)
[2022-05-16] MEDS: Acetaminophen 650 MG Suppository PR PRN (21:29)
[2022-05-17] MEDS: Fentanyl 100 MCG/2 ML VIAL SLOW IVP PRN ×5 (04:03→20:09)
[2022-05-17] MEDS: NOREPINEPHRINE 8 MG/250 ML-D5W 250 ML IVPB PRN ×2 (04:04→14:34)
[2022-05-17 04:34] LABS: Band 9 % (5-11); Eosinophils 9 % (0-10); Hemoglobin 9.1 g/dL (12.0-16.0); Lymphocytes 10 % (21-51); MDiff Complete? YES; Mean Corpuscular HGB CONC 33.3 g/dL (32.0-36.0); Mean Corpuscular Volume 87.2 fL (78.0-98.0); Monocytes 2 % (0-10); Neutrophil 70 % (42-75); Platelet Count 84 thou/uL (130-400); Platelet Morphology Comment Appears Decreased; RBC Distribution Width 13.7 % (11.5-14.5); Red Blood Cell (RBC) Count 3.15 mill/uL (4.20-5.40); White Blood Cell (WBC) Count 14.4 thou/uL (4.8-10.8)
[2022-05-17 04:37] LABS: AST (SGOT) 52 U/L (5-34); Albumin 2.3 g/dL (3.5-5.0); Alkaline Phosphatase 259 U/L (40-110); Anion Gap 14 mmol/L (10-20); BUN (Urea Nitrogen) 27 mg/dL (7.0-18.7); Bilirubin, Total 3.9 mg/dL (0.2-1.2); Calc. Creatinine Clearance 96 mL/min (70-130); Calcium 6.2 mg/dL (7.8-10.44); Carbon Dioxide 26 mmol/L (22-29); Chloride 99 mmol/L (98-107); Estimated GFR 56; Globulin 2.5 g/dL (2.4-3.5); Glucose 116 mg/dL (70-105); Protein, Total 4.8 g/dL (6.0-8.3); Sodium 136 mmol/L (136-145)
[2022-05-17 04:38] LABS: ALT (SGPT) 35 U/L (8-55); Magnesium 2.8 mg/dL (1.6-2.6)
[2022-05-17] MEDS: Promethazine HCl 12.5 MG, Admixture Fee 1 EACH in Sodium Chloride 0.9% 50 ML IVPB PRN ×4 (04:54→17:33)
[2022-05-17 04:55] LABS: Potassium 2.9 mmol/L (3.5-5.1)
[2022-05-17] MEDS ORDERED: Electrolyte Replacement Protocol FS PRN (05:15)
[2022-05-17] MEDS: metroNIDAZOLE 500 MG in Premix Bag 1 BAG IVPB SCH ×3 (05:45→22:22)
[2022-05-17] MEDS: Potassium Chloride 40 MEQ in Premix Bag 1 BAG IVPB SCH ×2 (06:16→09:12)
[2022-05-17] MEDS ORDERED: Furosemide 40 MG/4 ML VIAL SLOW IVP SCH (08:30)
[2022-05-17] MEDS ORDERED: Albumin 25% 25 GM/100 ML BOT IVPB SCH (09:00)
[2022-05-17] MEDS: Heparin 5,000 UNITS/ML VIAL SC SCH ×2 (09:11→20:10)
[2022-05-17] MEDS: Aspirin 81 mg Enteric Coated Tablet PO SCH (09:11)
[2022-05-17] MEDS: Cefepime 1 GM in Sodium Chloride 0.9% 100 ML IVPB SCH ×2 (09:12→20:10)
[2022-05-17] MEDS: Loratadine 10 MG TAB PO SCH (09:12)
[2022-05-17] MEDS: Citalopram 20 MG TAB PO SCH (09:12)
[2022-05-17] MEDS: Pantoprazole 40 MG VIAL IVP SCH (09:12)
[2022-05-17] MEDS ORDERED: Potassium Chloride 20 MEQ in Premix Bag 1 BAG IVPB SCH (09:45)
[2022-05-17] MEDS: Vancomycin 1.5 GRAM/300 ML BAG 1.5 GM in Premix Bag 1 BAG IVPB SCH (12:01)
[2022-05-17] MEDS: Potassium Chloride 20 MEQ in Premix Bag 1 BAG IVPB SCH ×3 (13:23→17:23)
[2022-05-17 20:19] LABS: Potassium 3.6 mmol/L (3.5-5.1)
[2022-05-17] MEDS: Atorvastatin Calcium 40 MG TAB PO SCH (22:22)
[2022-05-17] MEDS: Acetaminophen 650 MG Suppository PR PRN (22:22)
[2022-05-18] MEDS: Fentanyl 100 MCG/2 ML VIAL SLOW IVP PRN ×6 (00:19→20:21)
[2022-05-18 04:52] LABS: Band 14 % (5-11); Eosinophils 9 % (0-10); Hemoglobin 8.8 g/dL (12.0-16.0); Lactic Acid 1.4 mmol/L (0.5-2.2); Lymphocytes 9 % (21-51); MDiff Complete? YES; Mean Corpuscular HGB CONC 32.8 g/dL (32.0-36.0); Mean Corpuscular Hemoglobin 28.9 pg (27.0-31.0); Mean Platelet Volume 10.3 fL (7.4-10.4); Monocytes 1 % (0-10); Neutrophil 67 % (42-75); Platelet Count 84 thou/uL (130-400); Platelet Morphology Comment Appears Decreased; RBC Distribution Width 13.6 % (11.5-14.5); Red Blood Cell (RBC) Count 3.05 mill/uL (4.20-5.40); White Blood Cell (WBC) Count 15.2 thou/uL (4.8-10.8)
[2022-05-18 04:58] LABS: ALT (SGPT) 30 U/L (8-55); AST (SGOT) 36 U/L (5-34); Albumin 2.5 g/dL (3.5-5.0); Alkaline Phosphatase 258 U/L (40-110); Anion Gap 14 mmol/L (10-20); BUN (Urea Nitrogen) 22 mg/dL (7.0-18.7); Bilirubin, Total 3.2 mg/dL (0.2-1.2); Calc. Creatinine Clearance 112 mL/min (70-130); Calcium 6.8 mg/dL (7.8-10.44); Carbon Dioxide 26 mmol/L (22-29); Chloride 103 mmol/L (98-107); Estimated GFR 71; Globulin 2.5 g/dL (2.4-3.5); Glucose 102 mg/dL (70-105); Magnesium 2.3 mg/dL (1.6-2.6); Potassium 3.2 mmol/L (3.5-5.1); Sodium 140 mmol/L (136-145)
[2022-05-18] MEDS: metroNIDAZOLE 500 MG in Premix Bag 1 BAG IVPB SCH ×3 (05:33→21:53)
[2022-05-18] MEDS ORDERED: Potassium Chloride 40 MEQ in Premix Bag 1 BAG IVPB SCH ×2 (06:00→12:45)
[2022-05-18] MEDS: Pantoprazole 40 MG VIAL IVP SCH (08:50)
[2022-05-18] MEDS: Heparin 5,000 UNITS/ML VIAL SC SCH ×2 (08:50→20:46)
[2022-05-18] MEDS: Citalopram 20 MG TAB PO SCH (08:54)
[2022-05-18] MEDS: Aspirin 81 mg Enteric Coated Tablet PO SCH (08:54)
[2022-05-18] MEDS: Loratadine 10 MG TAB PO SCH (08:55)
[2022-05-18] MEDS: Cefepime 1 GM in Sodium Chloride 0.9% 100 ML IVPB SCH (08:56)
[2022-05-18] MEDS: Aspirin Chewable 81 MG TAB PER TUBE SCH (09:04)
[2022-05-18] MEDS: Promethazine HCl 12.5 MG, Admixture Fee 1 EACH in Sodium Chloride 0.9% 50 ML IVPB PRN ×2 (10:01→21:53)
[2022-05-18] MEDS: Acetaminophen 650 MG Suppository PR PRN (11:12)
[2022-05-18 11:34] LABS: Vancomycin, Trough 9.3 ug/mL
[2022-05-18] MEDS ORDERED: Potassium Chloride 40 MEQ in Sodium Chloride 0.9% 250 ML 250 ML IVPB SCH (12:00)
[2022-05-18] MEDS: Vancomycin 1.5 GRAM/300 ML BAG 1.5 GM in Premix Bag 1 BAG IVPB SCH (12:18)
[2022-05-18] MEDS: VANCOMYCIN 1.25 GM/250 ML BAG 1.25 GM in Premix Bag 1 BAG IVPB SCH (13:21)
[2022-05-18] MEDS: Dextrose 5 % And 0.9 % NaCl 1,000 ML IV SCH (13:55)
[2022-05-18] MEDS ORDERED: Furosemide 40 MG/4 ML VIAL SLOW IVP SCH (14:00)
[2022-05-18] MEDS: Cefepime 2 GM in Sodium Chloride 0.9% 100 ML IVPB SCH (20:20)
[2022-05-18] MEDS: Atorvastatin Calcium 40 MG TAB PO SCH (20:20)
[2022-05-19] MEDS: Fentanyl 100 MCG/2 ML VIAL SLOW IVP PRN ×5 (02:20→20:14)
[2022-05-19] MEDS: VANCOMYCIN 1.25 GM/250 ML BAG 1.25 GM in Premix Bag 1 BAG IVPB SCH ×2 (02:21→12:52)
[2022-05-19 04:49] LABS: ALT (SGPT) 22 U/L (8-55); AST (SGOT) 29 U/L (5-34); Albumin 2.5 g/dL (3.5-5.0); Alkaline Phosphatase 367 U/L (40-110); Anion Gap 15 mmol/L (10-20); BUN (Urea Nitrogen) 18 mg/dL (7.0-18.7); Bilirubin, Total 1.8 mg/dL (0.2-1.2); Calc. Creatinine Clearance 129 mL/min (70-130); Calcium 7.3 mg/dL (7.8-10.44); Carbon Dioxide 25 mmol/L (22-29); Chloride 104 mmol/L (98-107); Estimated GFR 84; Globulin 2.8 g/dL (2.4-3.5); Glucose 90 mg/dL (70-105); Magnesium 1.9 mg/dL (1.6-2.6); Potassium 3.3 mmol/L (3.5-5.1); Protein, Total 5.3 g/dL (6.0-8.3); Sodium 141 mmol/L (136-145)
[2022-05-19 04:55] LABS: Phosphorus 1.5 mg/dL (2.3-4.7)
[2022-05-19] MEDS: metroNIDAZOLE 500 MG in Premix Bag 1 BAG IVPB SCH ×3 (05:10→21:03)
[2022-05-19 05:11] LABS: Band 18 % (5-11); Eosinophils 14 % (0-10); Hemoglobin 8.4 g/dL (12.0-16.0); Lymphocytes 6 % (21-51); MDiff Complete? YES; Mean Corpuscular Hemoglobin 28.4 pg (27.0-31.0); Mean Corpuscular Volume 88.8 fL (78.0-98.0); Mean Platelet Volume 9.7 fL (7.4-10.4); Monocytes 3 % (0-10); Neutrophil 59 % (42-75); Platelet Count 102 thou/uL (130-400); Platelet Morphology Comment Appears Decreased; RBC Distribution Width 13.6 % (11.5-14.5); Red Blood Cell (RBC) Count 2.96 mill/uL (4.20-5.40); White Blood Cell (WBC) Count 13.2 thou/uL (4.8-10.8)
[2022-05-19] MEDS ORDERED: POTASSIUM CHLORIDE IVPB SCH (08:00)
[2022-05-19] MEDS ORDERED: SODIUM CHLORIDE 0.9% IVPB SCH (08:00)
[2022-05-19] MEDS ORDERED: Magnesium 2 GM/50 ML(in water) 2 GM in Premix Bag 1 BAG IVPB SCH (08:00)
[2022-05-19] MEDS ORDERED: Potassium Phosphate 22 MMOL in Sodium Chloride 0.9% 250 ML 250 ML IVPB SCH (09:00)
[2022-05-19] MEDS: Heparin 5,000 UNITS/ML VIAL SC SCH ×2 (09:40→21:20)
[2022-05-19] MEDS: Pantoprazole 40 MG VIAL IVP SCH (09:40)
[2022-05-19] MEDS: Cefepime 2 GM in Sodium Chloride 0.9% 100 ML IVPB SCH ×2 (09:41→21:03)
[2022-05-19] MEDS: Citalopram 20 MG TAB PO SCH (10:45)
[2022-05-19] MEDS: Aspirin Chewable 81 MG TAB PER TUBE SCH (10:45)
[2022-05-19] MEDS: Loratadine 10 MG TAB PO SCH (10:45)
[2022-05-19] MEDS: Dextrose 5 % And 0.9 % NaCl 1,000 ML IV SCH (13:39)
[2022-05-19] MEDS: Atorvastatin Calcium 40 MG TAB PO SCH (21:02)
[2022-05-19] MEDS: Promethazine HCl 12.5 MG, Admixture Fee 1 EACH in Sodium Chloride 0.9% 50 ML IVPB PRN (22:19)
[2022-05-20 00:14] LABS: Vancomycin, Trough 13.8 ug/mL
[2022-05-20] MEDS: Fentanyl 100 MCG/2 ML VIAL SLOW IVP PRN ×6 (00:19→21:27)
[2022-05-20] MEDS: VANCOMYCIN 1.25 GM/250 ML BAG 1.25 GM in Premix Bag 1 BAG IVPB SCH ×2 (01:45→13:49)
[2022-05-20 04:14] LABS: ALT (SGPT) 19 U/L (8-55); AST (SGOT) 32 U/L (5-34); Albumin 2.5 g/dL (3.5-5.0); Alkaline Phosphatase 574 U/L (40-110); Anion Gap 15 mmol/L (10-20); BUN (Urea Nitrogen) 14 mg/dL (7.0-18.7); Bilirubin, Total 1.1 mg/dL (0.2-1.2); Calc. Creatinine Clearance 73 mL/min (70-130); Calcium 7.3 mg/dL (7.8-10.44); Carbon Dioxide 21 mmol/L (22-29); Chloride 106 mmol/L (98-107); Estimated GFR 98; Globulin 2.8 g/dL (2.4-3.5); Glucose 98 mg/dL (70-105); Magnesium 1.8 mg/dL (1.6-2.6); Phosphorus 2.2 mg/dL (2.3-4.7); Potassium 3.4 mmol/L (3.5-5.1); Protein, Total 5.3 g/dL (6.0-8.3); Sodium 139 mmol/L (136-145)
[2022-05-20] MEDS: metroNIDAZOLE 500 MG in Premix Bag 1 BAG IVPB SCH ×3 (04:49→21:46)
[2022-05-20 05:02] LABS: Band 9 % (5-11); Eosinophils 8 % (0-10); Hemoglobin 8.5 g/dL (12.0-16.0); Lymphocytes 17 % (21-51); MDiff Complete? YES; Mean Corpuscular HGB CONC 32.8 g/dL (32.0-36.0); Mean Corpuscular Hemoglobin 29.1 pg (27.0-31.0); Mean Corpuscular Volume 88.7 fL (78.0-98.0); Mean Platelet Volume 9.1 fL (7.4-10.4); Monocytes 3 % (0-10); Neutrophil 63 % (42-75); Platelet Count 148 thou/uL (130-400); RBC Distribution Width 13.9 % (11.5-14.5); Red Blood Cell (RBC) Count 2.91 mill/uL (4.20-5.40)
[2022-05-20] MEDS ORDERED: Magnesium 2 GM/50 ML(in water) 2 GM in Premix Bag 1 BAG IVPB SCH (06:00)
[2022-05-20] MEDS ORDERED: Potassium Chloride 40 MEQ in Premix Bag 1 BAG IVPB SCH (08:00)
[2022-05-20] MEDS: Cefepime 2 GM in Sodium Chloride 0.9% 100 ML IVPB SCH ×2 (09:04→21:29)
[2022-05-20] MEDS: Aspirin Chewable 81 MG TAB PER TUBE SCH (09:04)
[2022-05-20] MEDS: Citalopram 20 MG TAB PO SCH (09:04)
[2022-05-20] MEDS: Loratadine 10 MG TAB PO SCH (09:05)
[2022-05-20] MEDS: Heparin 5,000 UNITS/ML VIAL SC SCH ×2 (09:05→21:29)
[2022-05-20] MEDS: Pantoprazole 40 MG VIAL IVP SCH (09:05)
[2022-05-20] MEDS: Promethazine HCl 12.5 MG, Admixture Fee 1 EACH in Sodium Chloride 0.9% 50 ML IVPB PRN ×2 (09:33→17:08)
[2022-05-20 15:37] LABS: Potassium 3.5 mmol/L (3.5-5.1)
[2022-05-20] MEDS: Atorvastatin Calcium 40 MG TAB PO SCH (21:29)
[2022-05-21] MEDS: VANCOMYCIN 1.25 GM/250 ML BAG 1.25 GM in Premix Bag 1 BAG IVPB SCH ×2 (01:20→13:34)
[2022-05-21] MEDS: Fentanyl 100 MCG/2 ML VIAL SLOW IVP PRN ×6 (01:21→21:24)
[2022-05-21] MEDS: metroNIDAZOLE 500 MG in Premix Bag 1 BAG IVPB SCH ×3 (05:32→21:15)
[2022-05-21 05:51] LABS: #Eosinphils 1.3 thou/uL (0.0-0.7); #Lymphocytes 2.6 thou/uL (1.20-3.40); #Monocytes 0.7 thou/uL (0.11-0.59); #Neutrophils 4.8 thou/uL (1.40-6.50); %Eosinophils 13.3 % (0.0-10.0); %Monocytes 7.1 % (0.0-10.0); %Neutrophils 51.5 % (42.0-75.0); Hemoglobin 8.4 g/dL (12.0-16.0); Mean Corpuscular HGB CONC 31.7 g/dL (32.0-36.0); Mean Corpuscular Hemoglobin 28.3 pg (27.0-31.0); Mean Corpuscular Volume 89.3 fL (78.0-98.0); Mean Platelet Volume 8.7 fL (7.4-10.4); Platelet Count 221 thou/uL (130-400); RBC Distribution Width 13.9 % (11.5-14.5); Red Blood Cell (RBC) Count 2.95 mill/uL (4.20-5.40); White Blood Cell (WBC) Count 9.4 thou/uL (4.8-10.8)
[2022-05-21 06:19] LABS: ALT (SGPT) 15 U/L (8-55); AST (SGOT) 22 U/L (5-34); Albumin 2.5 g/dL (3.5-5.0); Alkaline Phosphatase 454 U/L (40-110); Anion Gap 14 mmol/L (10-20); BUN (Urea Nitrogen) 10 mg/dL (7.0-18.7); Bilirubin, Total 0.9 mg/dL (0.2-1.2); Calc. Creatinine Clearance 148 mL/min (70-130); Calcium 7.6 mg/dL (7.8-10.44); Carbon Dioxide 20 mmol/L (22-29); Chloride 107 mmol/L (98-107); Estimated GFR 101; Globulin 2.9 g/dL (2.4-3.5); Glucose 91 mg/dL (70-105); Magnesium 1.7 mg/dL (1.6-2.6); Phosphorus 2.6 mg/dL (2.3-4.7); Potassium 3.7 mmol/L (3.5-5.1); Protein, Total 5.4 g/dL (6.0-8.3); Sodium 137 mmol/L (136-145)
[2022-05-21] MEDS ORDERED: Magnesium 2 GM/50 ML(in water) 2 GM in Premix Bag 1 BAG IVPB SCH (08:00)
[2022-05-21] MEDS ORDERED: Potassium Chloride 20 MEQ TAB PO SCH (08:00)
[2022-05-21] MEDS: Citalopram 20 MG TAB PO SCH (09:56)
[2022-05-21] MEDS: Aspirin Chewable 81 MG TAB PER TUBE SCH (09:56)
[2022-05-21] MEDS: Loratadine 10 MG TAB PO SCH (09:57)
[2022-05-21] MEDS: Heparin 5,000 UNITS/ML VIAL SC SCH ×2 (09:57→21:15)
[2022-05-21] MEDS: Pantoprazole 40 MG VIAL IVP SCH (09:57)
[2022-05-21] MEDS: Cefepime 2 GM in Sodium Chloride 0.9% 100 ML IVPB SCH ×2 (10:12→21:15)
[2022-05-21 13:02] LABS: Vancomycin, Trough 16.8 ug/mL
[2022-05-21] MEDS: HYDROcodone/Acetaminophen 10/325 mg Tablet PO PRN (22:36)
[2022-05-22] MEDS: Fentanyl 100 MCG/2 ML VIAL SLOW IVP PRN ×2 (01:17→05:26)
[2022-05-22] MEDS: VANCOMYCIN 1.25 GM/250 ML BAG 1.25 GM in Premix Bag 1 BAG IVPB SCH ×2 (01:31→13:01)
[2022-05-22] MEDS: HYDROcodone/Acetaminophen 10/325 mg Tablet PO PRN ×5 (02:40→20:00)
[2022-05-22] MEDS: metroNIDAZOLE 500 MG in Premix Bag 1 BAG IVPB SCH ×3 (05:27→21:02)
[2022-05-22 06:28] LABS: #Lymphocytes 2.2 thou/uL (1.20-3.40); #Monocytes 0.5 thou/uL (0.11-0.59); #Neutrophils 4.1 thou/uL (1.40-6.50); %Basophils 0.4 % (0.0-1.0); %Eosinophils 13.1 % (0.0-10.0); %Lymphocytes 28.2 % (21.0-51.0); %Monocytes 6.8 % (0.0-10.0); %Neutrophils 51.5 % (42.0-75.0); Hemoglobin 8.4 g/dL (12.0-16.0); Mean Corpuscular HGB CONC 31.7 g/dL (32.0-36.0); Mean Corpuscular Hemoglobin 28.3 pg (27.0-31.0); Mean Corpuscular Volume 89.1 fL (78.0-98.0); Mean Platelet Volume 8.7 fL (7.4-10.4); Platelet Count 287 thou/uL (130-400); RBC Distribution Width 13.9 % (11.5-14.5); Red Blood Cell (RBC) Count 2.96 mill/uL (4.20-5.40); White Blood Cell (WBC) Count 7.9 thou/uL (4.8-10.8)
[2022-05-22 06:47] LABS: Hemoglobin A1c 5.7 % (4.0-6.0)
[2022-05-22 07:02] LABS: ALT (SGPT) 10 U/L (8-55); AST (SGOT) 18 U/L (5-34); Albumin 2.5 g/dL (3.5-5.0); Alkaline Phosphatase 311 U/L (40-110); Anion Gap 13 mmol/L (10-20); BUN (Urea Nitrogen) 7 mg/dL (7.0-18.7); Bilirubin, Total 0.7 mg/dL (0.2-1.2); Calc. Creatinine Clearance 157 mL/min (70-130); Calcium 7.7 mg/dL (7.8-10.44); Carbon Dioxide 20 mmol/L (22-29); Chloride 109 mmol/L (98-107); Estimated GFR 106; Glucose 91 mg/dL (70-105); Magnesium 1.6 mg/dL (1.6-2.6); Potassium 3.6 mmol/L (3.5-5.1); Protein, Total 5.5 g/dL (6.0-8.3); Sodium 138 mmol/L (136-145)
[2022-05-22] MEDS ORDERED: Magnesium 2 GM/50 ML(in water) 2 GM in Premix Bag 1 BAG IVPB SCH (08:00)
[2022-05-22] MEDS: Morphine 4 MG/ML VIAL SLOW IVP PRN ×4 (09:18→21:00)
[2022-05-22] MEDS: Loratadine 10 MG TAB PO SCH (09:18)
[2022-05-22] MEDS: Pantoprazole 40 MG VIAL IVP SCH (09:19)
[2022-05-22] MEDS: Cefepime 2 GM in Sodium Chloride 0.9% 100 ML IVPB SCH ×2 (09:19→19:44)
[2022-05-22] MEDS: Citalopram 20 MG TAB PO SCH (09:20)
[2022-05-22] MEDS: Heparin 5,000 UNITS/ML VIAL SC SCH ×2 (09:20→19:45)
[2022-05-22] MEDS: Aspirin Chewable 81 MG TAB PER TUBE SCH (09:20)
[2022-05-23] MEDS: HYDROcodone/Acetaminophen 10/325 mg Tablet PO PRN ×4 (01:44→15:04)
[2022-05-23] MEDS: Morphine 4 MG/ML VIAL SLOW IVP PRN ×6 (02:44→23:55)
[2022-05-23] MEDS: metroNIDAZOLE 500 MG in Premix Bag 1 BAG IVPB SCH ×3 (05:22→20:52)
[2022-05-23 07:15] LABS: #Lymphocytes 1.9 thou/uL (1.20-3.40); #Monocytes 0.7 thou/uL (0.11-0.59); #Neutrophils 3.3 thou/uL (1.40-6.50); %Basophils 0.5 % (0.0-1.0); %Eosinophils 14.8 % (0.0-10.0); %Lymphocytes 27.9 % (21.0-51.0); %Monocytes 9.4 % (0.0-10.0); %Neutrophils 47.4 % (42.0-75.0); Mean Corpuscular HGB CONC 32.4 g/dL (32.0-36.0); Mean Corpuscular Volume 89.4 fL (78.0-98.0); Mean Platelet Volume 8.1 fL (7.4-10.4); Platelet Count 343 thou/uL (130-400); RBC Distribution Width 14.2 % (11.5-14.5); Red Blood Cell (RBC) Count 2.75 mill/uL (4.20-5.40)
[2022-05-23 07:34] LABS: ALT (SGPT) 10 U/L (8-55); AST (SGOT) 16 U/L (5-34); Albumin 2.6 g/dL (3.5-5.0); Alkaline Phosphatase 276 U/L (40-110); Anion Gap 11 mmol/L (10-20); BUN (Urea Nitrogen) 6 mg/dL (7.0-18.7); Bilirubin, Total 0.7 mg/dL (0.2-1.2); Calc. Creatinine Clearance 156 mL/min (70-130); Calcium 7.8 mg/dL (7.8-10.44); Carbon Dioxide 23 mmol/L (22-29); Chloride 109 mmol/L (98-107); Estimated GFR 106; Glucose 95 mg/dL (70-105); Magnesium 1.8 mg/dL (1.6-2.6); Potassium 3.6 mmol/L (3.5-5.1); Protein, Total 5.6 g/dL (6.0-8.3); Sodium 139 mmol/L (136-145)
[2022-05-23] MEDS: Heparin 5,000 UNITS/ML VIAL SC SCH ×2 (08:03→19:52)
[2022-05-23] MEDS: Citalopram 20 MG TAB PO SCH (08:04)
[2022-05-23] MEDS: Loratadine 10 MG TAB PO SCH (08:04)
[2022-05-23] MEDS: Pantoprazole 40 MG VIAL IVP SCH (08:04)
[2022-05-23] MEDS: Aspirin Chewable 81 MG TAB PER TUBE SCH (08:04)
[2022-05-23] MEDS: Cefepime 2 GM in Sodium Chloride 0.9% 100 ML IVPB SCH ×2 (08:06→19:51)
[2022-05-23] MEDS: Magnesium 2 GM/50 ML(in water) 2 GM in Premix Bag 1 BAG IVPB SCH ×2 (09:46→10:58)
[2022-05-23] MEDS ORDERED: Magnesium 2 GM/50 ML BAG (IN WATER) ONE (10:56)
[2022-05-23 12:49] VITALS: BMI 37.8
[2022-05-23] MEDS: Promethazine HCl 12.5 MG, Admixture Fee 1 EACH in Sodium Chloride 0.9% 50 ML IVPB PRN (17:16)
[2022-05-24] MEDS: HYDROcodone/Acetaminophen 10/325 mg Tablet PO PRN ×5 (01:14→23:43)
[2022-05-24] MEDS: Morphine 4 MG/ML VIAL SLOW IVP PRN ×5 (03:43→22:40)
[2022-05-24] MEDS: metroNIDAZOLE 500 MG in Premix Bag 1 BAG IVPB SCH ×3 (05:20→21:04)
[2022-05-24 06:14] LABS: #Eosinphils 0.8 thou/uL (0.0-0.7); #Monocytes 0.6 thou/uL (0.11-0.59); #Neutrophils 2.7 thou/uL (1.40-6.50); %Basophils 0.8 % (0.0-1.0); %Eosinophils 12.8 % (0.0-10.0); %Lymphocytes 32.8 % (21.0-51.0); %Monocytes 9.8 % (0.0-10.0); %Neutrophils 43.8 % (42.0-75.0); Hemoglobin 8.5 g/dL (12.0-16.0); Mean Corpuscular HGB CONC 31.9 g/dL (32.0-36.0); Mean Corpuscular Hemoglobin 28.6 pg (27.0-31.0); Mean Corpuscular Volume 89.5 fL (78.0-98.0); Mean Platelet Volume 7.6 fL (7.4-10.4); Platelet Count 437 thou/uL (130-400); RBC Distribution Width 14.5 % (11.5-14.5); Red Blood Cell (RBC) Count 2.96 mill/uL (4.20-5.40); White Blood Cell (WBC) Count 6.1 thou/uL (4.8-10.8)
[2022-05-24 06:37] LABS: ALT (SGPT) 9 U/L (8-55); AST (SGOT) 16 U/L (5-34); Albumin 2.7 g/dL (3.5-5.0); Alkaline Phosphatase 230 U/L (40-110); Anion Gap 11 mmol/L (10-20); BUN (Urea Nitrogen) 5 mg/dL (7.0-18.7); Bilirubin, Total 0.7 mg/dL (0.2-1.2); Calc. Creatinine Clearance 146 mL/min (70-130); Calcium 7.9 mg/dL (7.8-10.44); Carbon Dioxide 23 mmol/L (22-29); Chloride 109 mmol/L (98-107); Estimated GFR 98; Globulin 3.2 g/dL (2.4-3.5); Glucose 101 mg/dL (70-105); Magnesium 1.6 mg/dL (1.6-2.6); Potassium 3.8 mmol/L (3.5-5.1); Protein, Total 5.9 g/dL (6.0-8.3); Sodium 139 mmol/L (136-145)
[2022-05-24] MEDS ORDERED: Magnesium 2 GM/50 ML(in water) 2 GM in Premix Bag 1 BAG IVPB SCH (08:00)
[2022-05-24] MEDS: Loratadine 10 MG TAB PO SCH (08:10)
[2022-05-24] MEDS: Citalopram 20 MG TAB PO SCH (08:11)
[2022-05-24] MEDS: Aspirin Chewable 81 MG TAB PER TUBE SCH (08:11)
[2022-05-24] MEDS: Heparin 5,000 UNITS/ML VIAL SC SCH ×2 (08:14→19:53)
[2022-05-24] MEDS: Pantoprazole 40 MG VIAL IVP SCH (08:14)
[2022-05-24] MEDS: Cefepime 2 GM in Sodium Chloride 0.9% 100 ML IVPB SCH ×2 (08:19→19:52)
[2022-05-24] MEDS: Promethazine HCl 12.5 MG, Admixture Fee 1 EACH in Sodium Chloride 0.9% 50 ML IVPB PRN (20:39)
[2022-05-25] MEDS: Morphine 4 MG/ML VIAL SLOW IVP PRN ×6 (02:45→23:38)
[2022-05-25] MEDS: HYDROcodone/Acetaminophen 10/325 mg Tablet PO PRN ×4 (04:14→18:11)
[2022-05-25] MEDS: metroNIDAZOLE 500 MG in Premix Bag 1 BAG IVPB SCH (05:01)
[2022-05-25 06:07] LABS: #Basophils 0.1 thou/uL (0.0-0.2); #Eosinphils 0.7 thou/uL (0.0-0.7); #Lymphocytes 2.2 thou/uL (1.20-3.40); #Monocytes 0.6 thou/uL (0.11-0.59); #Neutrophils 1.7 thou/uL (1.40-6.50); %Basophils 1.1 % (0.0-1.0); %Eosinophils 13.8 % (0.0-10.0); %Lymphocytes 41.9 % (21.0-51.0); %Neutrophils 32.2 % (42.0-75.0); Hemoglobin 8.5 g/dL (12.0-16.0); Mean Corpuscular HGB CONC 31.9 g/dL (32.0-36.0); Mean Corpuscular Hemoglobin 29.2 pg (27.0-31.0); Mean Corpuscular Volume 91.7 fL (78.0-98.0); Mean Platelet Volume 7.7 fL (7.4-10.4); Platelet Count 515 thou/uL (130-400); RBC Distribution Width 14.5 % (11.5-14.5); Red Blood Cell (RBC) Count 2.92 mill/uL (4.20-5.40); White Blood Cell (WBC) Count 5.3 thou/uL (4.8-10.8)
[2022-05-25 06:10] LABS: ALT (SGPT) 9 U/L (8-55); AST (SGOT) 19 U/L (5-34); Albumin 2.6 g/dL (3.5-5.0); Alkaline Phosphatase 179 U/L (40-110); Anion Gap 12 mmol/L (10-20); BUN (Urea Nitrogen) 5 mg/dL (7.0-18.7); Bilirubin, Total 0.5 mg/dL (0.2-1.2); Calc. Creatinine Clearance 152 mL/min (70-130); Calcium 7.8 mg/dL (7.8-10.44); Carbon Dioxide 19 mmol/L (22-29); Chloride 113 mmol/L (98-107); Estimated GFR 103; Globulin 3.5 g/dL (2.4-3.5); Glucose 89 mg/dL (70-105); Magnesium 1.6 mg/dL (1.6-2.6); Potassium 4.1 mmol/L (3.5-5.1); Protein, Total 6.1 g/dL (6.0-8.3); Sodium 140 mmol/L (136-145)
[2022-05-25] MEDS ORDERED: Magnesium 2 GM/50 ML(in water) 2 GM in Premix Bag 1 BAG IVPB SCH (08:00)
[2022-05-25] MEDS: Cefepime 2 GM in Sodium Chloride 0.9% 100 ML IVPB SCH (08:42)
[2022-05-25] MEDS: Aspirin Chewable 81 MG TAB PER TUBE SCH (08:46)
[2022-05-25] MEDS: Loratadine 10 MG TAB PO SCH (08:48)
[2022-05-25] MEDS: Citalopram 20 MG TAB PO SCH (08:48)
[2022-05-25] MEDS: Pantoprazole 40 MG VIAL IVP SCH (08:49)
[2022-05-25] MEDS: Heparin 5,000 UNITS/ML VIAL SC SCH ×2 (08:49→23:02)
[2022-05-25] MEDS: Promethazine HCl 12.5 MG, Admixture Fee 1 EACH in Sodium Chloride 0.9% 50 ML IVPB PRN (23:39)
[2022-05-26] MEDS: HYDROcodone/Acetaminophen 10/325 mg Tablet PO PRN ×3 (02:42→18:41)
[2022-05-26] MEDS: Morphine 4 MG/ML VIAL SLOW IVP PRN ×3 (05:39→13:49)
[2022-05-26 06:49] LABS: ALT (SGPT) 8 U/L (8-55); AST (SGOT) 19 U/L (5-34); Albumin 2.8 g/dL (3.5-5.0); Alkaline Phosphatase 166 U/L (40-110); Anion Gap 16 mmol/L (10-20); BUN (Urea Nitrogen) 7 mg/dL (7.0-18.7); Bilirubin, Total 0.5 mg/dL (0.2-1.2); Calc. Creatinine Clearance 137 mL/min (70-130); Calcium 8.4 mg/dL (7.8-10.44); Carbon Dioxide 16 mmol/L (22-29); Chloride 112 mmol/L (98-107); Estimated GFR 99; Globulin 3.6 g/dL (2.4-3.5); Glucose 100 mg/dL (70-105); Magnesium 1.7 mg/dL (1.6-2.6); Potassium 4.6 mmol/L (3.5-5.1); Protein, Total 6.4 g/dL (6.0-8.3); Sodium 139 mmol/L (136-145)
[2022-05-26 07:04] LABS: #Basophils 0.1 thou/uL (0.0-0.2); #Eosinphils 0.6 thou/uL (0.0-0.7); #Lymphocytes 2.6 thou/uL (1.20-3.40); #Monocytes 0.6 thou/uL (0.11-0.59); #Neutrophils 1.6 thou/uL (1.40-6.50); %Basophils 1.8 % (0.0-1.0); %Eosinophils 11.2 % (0.0-10.0); %Monocytes 10.9 % (0.0-10.0); %Neutrophils 29.1 % (42.0-75.0); Hemoglobin 9.1 g/dL (12.0-16.0); Mean Corpuscular HGB CONC 34.3 g/dL (32.0-36.0); Mean Corpuscular Hemoglobin 31.2 pg (27.0-31.0); Mean Corpuscular Volume 91.1 fL (78.0-98.0); Mean Platelet Volume 7.5 fL (7.4-10.4); Platelet Count 577 thou/uL (130-400); RBC Distribution Width 14.6 % (11.5-14.5); White Blood Cell (WBC) Count 5.6 thou/uL (4.8-10.8)
[2022-05-26] MEDS ORDERED: Magnesium 2 GM/50 ML(in water) 2 GM in Premix Bag 1 BAG IVPB SCH (08:00)
[2022-05-26] MEDS: Loratadine 10 MG TAB PO SCH (08:08)
[2022-05-26] MEDS: Aspirin Chewable 81 MG TAB PER TUBE SCH (08:08)
[2022-05-26] MEDS: Citalopram 20 MG TAB PO SCH (08:08)
[2022-05-26] MEDS: Heparin 5,000 UNITS/ML VIAL SC SCH ×2 (08:09→21:31)
[2022-05-26] MEDS: Promethazine HCl 12.5 MG, Admixture Fee 1 EACH in Sodium Chloride 0.9% 50 ML IVPB PRN (15:12)
[2022-05-27] MEDS: HYDROcodone/Acetaminophen 10/325 mg Tablet PO PRN ×4 (01:13→14:40)
[2022-05-27] MEDS: Citalopram 20 MG TAB PO SCH (09:42)
[2022-05-27] MEDS: Loratadine 10 MG TAB PO SCH (09:43)
[2022-05-27] MEDS: Aspirin Chewable 81 MG TAB PER TUBE SCH (09:43)
[2022-05-27] MEDS: Heparin 5,000 UNITS/ML VIAL SC SCH (09:43)
[2022-05-27 15:50] VITALS: BP 124/82; TEMP 98.6
== END 2022-05-27 16:39 | disposition home or self-care (01) | DRG 862 ==
LOC: ERS 14:52 → SUATTDRO 14:52 → ERHOLD 18:33 → CCU 05-15 02:10 → T4-A 05-20 20:34
PROVIDERS: ADMIT Hospitalist; ATTEND Hospitalist
PROC: 3E03329 Introduction of Other Anti-infective into Peripheral Vein, Percutaneous Approach (ICD-10-PCS; principal; 2022-05-14)
PROC: 3E033XZ Introduction of Vasopressor into Peripheral Vein, Percutaneous Approach (ICD-10-PCS; 2022-05-14)
PROC: 0D9670Z Drainage of Stomach with Drainage Device, Via Natural or Artificial Opening (ICD-10-PCS; 2022-05-16)
DX: T81.44XA Sepsis following a procedure, initial encounter (principal); A41.9 Sepsis, unspecified organism; J18.9 Pneumonia, unspecified organism; R65.21 Severe sepsis with septic shock; R57.1 Hypovolemic shock; K91.872 Postprocedural seroma of a digestive system organ or structure following a digestive system procedure; N17.9 Acute kidney failure, unspecified; N18.4 Chronic kidney disease, stage 4 (severe); E87.1 Hypo-osmolality and hyponatremia; K56.7 Ileus, unspecified; N39.0 Urinary tract infection, site not specified; R18.8 Other ascites; Z20.822 Contact with and (suspected) exposure to COVID-19; E86.0 Dehydration; F32.A Depression, unspecified; F17.290 Nicotine dependence, other tobacco product, uncomplicated; Y95 Nosocomial condition; E87.6 Hypokalemia; I12.9 Hypertensive chronic kidney disease with stage 1 through stage 4 chronic kidney disease, or unspecified chronic kidney disease; D63.1 Anemia in chronic kidney disease; E83.51 Hypocalcemia; E83.42 Hypomagnesemia; E66.9 Obesity, unspecified; E88.09 Other disorders of plasma-protein metabolism, not elsewhere classified; E83.39 Other disorders of phosphorus metabolism; Z93.3 Colostomy status; Z98.890 Other specified postprocedural states; Z88.8 Allergy status to other drugs, medicaments and biological substances; Z79.899 Other long term (current) drug therapy; Z68.32 Body mass index [BMI] 32.0-32.9, adult
CPT/HCPCS: 36415; 36416; 36556; 51702; 71045; 71275; 74018; 74176; 76705; 80053; 80202; 81003; 81015; 83036; 83605; 83690; 83735; 83880; 84100; 84484; 85025; 86850; 86900; 86901; 87040; 87070; 87077; 87081; 87086; 87186; 87205; 93005; 93306; 94660; 94760; 96361; 96365; 96367; 96374; 96375; 97139; C9113; J0610; J0692; J1100; J1170; J1644; J1940; J2250; J2270; J2550; J3010; J3370; J3475; J3480; J3490; J7042; J7050; J7070; J7120; P9047; Q9967; U0002; U0003; U0005

== ENCOUNTER 2022-12-09 11:29 | Inpatient (IN) | payer BC ==
[2022-12-09] MEDS ORDERED: Morphine 4 MG/ML VIAL ONE ×3 (13:13→16:59)
[2022-12-09] MEDS ORDERED: Promethazine HCl 12.5 MG in Sodium Chloride 0.9% 50 ML IVPB SCH (13:30)
[2022-12-09 13:33] LABS: #Basophils 0.1 thou/uL (0.0-0.2); #Eosinphils 0.2 thou/uL (0.0-0.7); #Monocytes 0.7 thou/uL (0.11-0.59); #Neutrophils 6.4 thou/uL (1.40-6.50); %Basophils 0.9 % (0.0-1.0); %Eosinophils 1.9 % (0.0-10.0); %Monocytes 6.5 % (0.0-10.0); %Neutrophils 61.7 % (42.0-75.0); Hemoglobin 13.7 g/dL (12.0-16.0); Mean Corpuscular HGB CONC 33.2 g/dL (32.0-36.0); Mean Corpuscular Hemoglobin 28.3 pg (27.0-31.0); Mean Corpuscular Volume 85.4 fl (78.0-98.0); Mean Platelet Volume 7.7 fL (7.4-10.4); Platelet Count 346 10x3/uL (130-400); RBC Distribution Width 13.8 % (11.5-14.5); Red Blood Cell (RBC) Count 4.83 mill/uL (4.20-5.40); White Blood Cell (WBC) Count 10.3 10x3/uL (4.8-10.8)
[2022-12-09 13:52] LABS: ALT (SGPT) 46 U/L (8-55); AST (SGOT) 30 U/L (5-34); Albumin 4.5 g/dL (3.5-5.0); Alkaline Phosphatase 83 U/L (40-110); Anion Gap 16 mmol/L (10-20); BUN (Urea Nitrogen) 9 mg/dL (7.0-18.7); Bilirubin, Total 0.4 mg/dL (0.2-1.2); Calc. Creatinine Clearance 0 mL/min (70-130); Calcium 9.3 mg/dL (7.8-10.44); Carbon Dioxide 15 mmol/L (22-29); Chloride 107 mmol/L (98-107); Estimated GFR 67; Glucose 87 mg/dL (70-105); Lipase 19 U/L (8-78); Potassium 4.8 mmol/L (3.5-5.1); Protein, Total 8.5 g/dL (6.0-8.3); Sodium 133 mmol/L (136-145)
[2022-12-09 15:44] LABS: Bacteria/HPF None Seen HPF (None Seen); Bilirubin Negative (Negative); Blood, Urine Negative (Negative); Clarity Clear (Clear); Glucose, Urine (Dipstick) Normal (Negative); Ketone, Urine Trace mg/dL (Negative); Leukocyte 75 Leu/uL (Negative); Nitrite Negative (Negative); Protein, Urine (Dipstick) 20 mg/dL (Neg-Trace); RBC/HPF 0-3 HPF (0-3); Squamous Epithelial 21-50 HPF (0-3); Urobilinogen Normal mg/dL (Less than 2)
[2022-12-09 15:45] LABS: Specific Gravity, Urine Greater than 1.060 (1.002-1.036)
[2022-12-09] MEDS ORDERED: Lidocaine Viscous Sol 2% 15 ml UD Cup ONE (16:54)
[2022-12-09] MEDS ORDERED: Benzocaine 20% Spray 60 ML CAN ONE (16:54)
[2022-12-09] MEDS ORDERED: Iopamidol-370 76% 500 ML 1 ML ONE (17:24)
[2022-12-09] MEDS ORDERED: hydrALAZINE 20 MG/ML VIAL SLOW IVP PRN (17:39)
[2022-12-09] MEDS ORDERED: Morphine 2 MG/ML VIAL SLOW IVP PRN (17:39)
[2022-12-09] MEDS ORDERED: Promethazine HCl 25 MG/ML VIAL IM PRN (17:39)
[2022-12-09] MEDS ORDERED: Ipratropium/Albuterol 3 ML NEB NEB PRN (17:39)
[2022-12-09] MEDS ORDERED: TETANUS, DIPHTHERIA TOX,ADULT (TDVAX) 0.5 ML VIAL IM ONE (17:39)
[2022-12-09] MEDS ORDERED: Ketorolac Tromethamine 30 MG/ML VIAL IVP SCH (17:45)
[2022-12-09 19:35] VITALS: BMI 34.3
[2022-12-09] MEDS: Morphine 4 MG/ML VIAL SLOW IVP PRN (20:12)
[2022-12-09] MEDS: Promethazine HCl 25 MG/ML VIAL IM PRN (20:19)
[2022-12-09] MEDS: Lactated Ringer's 1,000 ML IV SCH (21:17)
[2022-12-10] MEDS: Morphine 4 MG/ML VIAL SLOW IVP PRN ×7 (01:05→23:16)
[2022-12-10] MEDS: Promethazine HCl 25 MG/ML VIAL IM PRN (01:20)
[2022-12-10] MEDS: Lactated Ringer's 1,000 ML IV SCH ×4 (04:08→20:15)
[2022-12-10 05:15] LABS: ALT (SGPT) 33 U/L (8-55); AST (SGOT) 23 U/L (5-34); Albumin 3.8 g/dL (3.5-5.0); Alkaline Phosphatase 74 U/L (40-110); BUN (Urea Nitrogen) 8 mg/dL (7.0-18.7); Bilirubin, Total 0.4 mg/dL (0.2-1.2); Calc. Creatinine Clearance 106 mL/min (70-130); Calcium 8.6 mg/dL (7.8-10.44); Carbon Dioxide 13 mmol/L (22-29); Chloride 111 mmol/L (98-107); Estimated GFR 75; Globulin 3.6 g/dL (2.4-3.5); Glucose 75 mg/dL (70-105); Potassium 4.2 mmol/L (3.5-5.1); Protein, Total 7.4 g/dL (6.0-8.3); Sodium 136 mmol/L (136-145)
[2022-12-10 05:43] LABS: Anion Gap 16 mmol/L (10-20)
[2022-12-10 06:11] LABS: #Eosinphils 0.3 thou/uL (0.0-0.7); #Lymphocytes 3.2 thou/uL (1.20-3.40); #Monocytes 0.5 thou/uL (0.11-0.59); #Neutrophils 3.4 thou/uL (1.40-6.50); %Basophils 0.4 % (0.0-1.0); %Eosinophils 3.9 % (0.0-10.0); %Lymphocytes 43.2 % (21.0-51.0); %Monocytes 6.8 % (0.0-10.0); %Neutrophils 45.7 % (42.0-75.0); Mean Corpuscular HGB CONC 32.5 g/dL (32.0-36.0); Mean Corpuscular Hemoglobin 28.3 pg (27.0-31.0); Mean Platelet Volume 7.7 fL (7.4-10.4); Platelet Count 276 10x3/uL (130-400); RBC Distribution Width 13.7 % (11.5-14.5); Red Blood Cell (RBC) Count 4.24 mill/uL (4.20-5.40); White Blood Cell (WBC) Count 7.4 10x3/uL (4.8-10.8)
[2022-12-10] MEDS: Pantoprazole 40 MG VIAL IVP SCH (08:12)
[2022-12-10] MEDS ORDERED: FLU VACC QS2022-23(6MOS UP)/PF 60 MCG/0.5 ML SYRINGE IM ONE (09:00)
[2022-12-10] MEDS ORDERED: MD-Gastroview 120 ML BOT ONE (18:09)
[2022-12-10] MEDS ORDERED: Promethazine 25 MG TAB PO PRN (18:45)
[2022-12-11] MEDS: Ketorolac Tromethamine 30 MG/ML VIAL IVP PRN ×2 (00:30→07:44)
[2022-12-11] MEDS: Morphine 4 MG/ML VIAL SLOW IVP PRN ×4 (01:45→11:14)
[2022-12-11] MEDS: Lactated Ringer's 1,000 ML IV SCH ×2 (01:45→10:22)
[2022-12-11] MEDS: Pantoprazole 40 MG VIAL IVP SCH (07:47)
[2022-12-11 08:04] VITALS: TEMP 98.2
[2022-12-11] MEDS ORDERED: Loratadine 10 MG TAB PO SCH (09:00)
[2022-12-11] MEDS ORDERED: Citalopram 20 MG TAB PO SCH (09:00)
[2022-12-11] MEDS ORDERED: Non-Formulary Item 1 EACH (Esomeprazole Magnesium [Nexium] 20 MG Capsule.Dr) PO SCH (09:00)
[2022-12-11 11:43] VITALS: BP 121/79
== END 2022-12-11 14:00 | disposition home or self-care (01) | DRG 390 ==
LOC: ERS 11:29 → EDUNIT# 11:29 → SURG A 18:25
PROVIDERS: ADMIT Specialist; ATTEND Specialist
PROC: 0D9670Z Drainage of Stomach with Drainage Device, Via Natural or Artificial Opening (ICD-10-PCS; principal; 2022-12-09)
DX: K56.609 Unspecified intestinal obstruction, unspecified as to partial versus complete obstruction (principal); F17.290 Nicotine dependence, other tobacco product, uncomplicated; Z20.822 Contact with and (suspected) exposure to COVID-19; Z28.21 Immunization not carried out because of patient refusal; Z88.8 Allergy status to other drugs, medicaments and biological substances; Z90.49 Acquired absence of other specified parts of digestive tract; Z93.2 Ileostomy status; Z79.899 Other long term (current) drug therapy
CPT/HCPCS: 36415; 71045; 74019; 74177; 74250; 80053; 81003; 81015; 83605; 83690; 85025; 87324; 87449; 96361; 96365; 96375; 96376; C9113; J1650; J1885; J2270; J2550; J7120; Q9963; Q9967; U0003; U0005